=== PATIENT | female | born 1965 | race Caucasian/White ===

== ENCOUNTER 2022-05-03 07:55 | Emergency (ER) | payer BC, SELFPAY ==
--- NOTE | ~2022-05-03 | CT_ITS ---
EXAMINATION: CT brain wo con DATE: 05/03/2022 08:53 INDICATION: Confusion. Disorientation. TECHNIQUE: Computed tomography (CT) of the head was performed without intravenous contrast. The mA wa s adjusted according to patient size. Iterative reconstruction technique was employed. The dose-lengt h product was 529.67 mGy-cm. COMPARISON: None FINDINGS: There is no intracranial hemorrhage, acute infarction, or abnormal intracranial mass lesion . The ventricles are normal in size. There is mild mucosal thickening in the paranasal sinuses. The o rbits are normal. The mastoid air cells are normal. IMPRESSION: 1. Normal brain. Reviewed, dictated and finalized at location A. IMPRESSION: 1. Normal brain.
[2022-05-03 07:55] VITALS: BP 124/74; PULSE 67; RESP 14; TEMP 35.9; O2SAT 96
[2022-05-03 08:09] LABS: Glucose Point of Care 110 mg/dl (65-105)
--- NOTE | 2022-05-03 08:13 | ED.AMS ---
HPI - Altered Mental Status General Chief Complaint: Altered Mental Status Stated Complaint: AMBULANCE Time Seen by Provider: 05/03/22 08:13 Source: patient, family and RN notes reviewed Mode of arrival: EMS Limitations: altered mental status History of Present Illness HPI narrative: reports he found patient staggering around outside at 3 in the morning. She was screaming to get the people out of the back of her car. She wanted her to move his truck. She had backed into his trach with her car. thought she was sleepwalking. Then the patient went to the kitchen and started making a salad chopping up salad and then felt like she was going to fall down grabbed her and eased her down to the floor. Last known well was 2100 prior night. She has been having some slurred speech and some mild lethargy. Otherwise no other neurological symptoms have been identified. MD complaint: confusion Onset (ago): hour(s) (5) Timing confirmed by: spouse Severity: moderate Consistency of symptoms: waxing and waning Context: unknown Associated symptoms: denies other symptoms Related Data Home Medications Medication Instructions Recorded Confirmed amitriptyline 25 mg tablet 25 mg PO DAILY 05/03/22 05/03/22 ciprofloxacin HCl 500 mg tablet 500 mg PO BID 05/03/22 05/03/22 cyclobenzaprine 10 mg tablet 10 mg PO DAILY 05/03/22 05/03/22 famotidine 40 mg tablet 40 mg PO DAILY 05/03/22 05/03/22 folic acid 1 mg tablet 1 mg PO DAILY 05/03/22 05/03/22 linaclotide 290 mcg capsule 290 mcg PO DAILY 05/03/22 05/03/22 (Linzess) methotrexate sodium 2.5 mg tablet 2.5 mg PO DAILY 05/03/22 05/03/22 metoprolol succinate 100 mg 100 mg PO DAILY 05/03/22 05/03/22 tablet,extended release 24 hr pregabalin 150 mg capsule 150 mg PO DAILY 05/03/22 05/03/22 sucralfate 1 gram tablet 1 g PO DAILY 05/03/22 05/03/22 zolpidem 10 mg tablet 10 mg PO DAILY 05/03/22 05/03/22 Allergies Allergy/AdvReac Type Severity Reaction Status Date / Time adhesive tape Allergy Unknown rash Verified 05/03/22 08:17 Review of Systems Constitutional: Constitutional: Denies chills and Denies fever(s) Neurologic: Denies dizziness, Denies headache(s), Denies focal weakness, Denies seizure-like activity and Denies paresthesias [facility] Past Medical History Medical History (Updated 05/04/22 @ 00:00 by Background Daemon) GERD (gastroesophageal reflux disease) Viktoria's thyroiditis Hypertension Irritable bowel syndrome Multinodular goiter Family History Family History Other Asthma Depression Diabetes mellitus Family history of alcoholism Family history of arthritis Family history of malignant neoplasm of breast in first degree relative Social History Social History Smoking status: Never smoker Alcohol intake: current Exam Const: General: healthy appearing, no acute distress and confusion Nutritional Appearance: well nourished Orientation/consciousness: patient oriented x3 Limitations: no limitations HENMT: Head: normal to inspection Ears: external ears normal General nose exam: Normal external nose present Face and sinus: normal facial exam Mouth: Yes moist mucous membranes Eyes: Conjunctivae: conjunctivae normal Pupils: Equal, round and reactive pupils present EOM: EOMs intact bilaterally Neck: Neck: normal visual inspection Resp: Effort & Inspection: normal respiratory effort Auscultation: clear to auscultation bilaterally Cardio: Rate: regular rate Rhythm: regular rhythm GI: GI Palp: Yes Soft to palpation and No Tenderness to palpation present (GI) Auscultation: normal bowel sounds Back/Spine/Pelvis: Cervical Spine: cervical ROM normal Thoracic/Lumbar Spine: thoraco-lumbar ROM normal Skin: General skin exam: normal color Rashes: no rashes Neuro: General: oriented to person, moves all extremities and no meninge
[2022-05-03 08:16] VITALS: BP 127/70; PULSE 65; RESP 18; TEMP 36.6; O2SAT 96
[2022-05-03 08:24] VITALS: BP 127/70; PULSE 65; RESP 18; TEMP 36.6; O2SAT 96
[2022-05-03 08:36] LABS: Basophils Absolute Auto 0.02 K/mm3 (0.00-0.10); Basophils Percent Auto 0.2 % (0.0-1.0); Eosinophils Absolute Auto 0.03 K/mm3 (0.02-0.50); Eosinophils Percent Auto 0.3 % (1.0-6.0); Hematocrit 39.2 % (35.0-49.0); Hemoglobin 12.4 g/dL (12.0-15.0); Immature Granulocyte Absolute 0.03 K/mm3 (0.00-0.00); Immature Granulocyte Percent A 0.3 % (0.0-0.0); Lymphocytes Absolute Auto 2.28 K/mm3 (1.10-4.50); Mean Corpuscular HGB Conc 31.6 g/dL (32.0-36.0); Mean Corpuscular Hemoglobin 30.8 pg (27.0-31.0); Mean Corpuscular Volume 97.3 fL (78.0-102.0); Mean Platelet Volume 9.2 fl (9.2-11.8); Monocytes Absolute Auto 0.65 K/mm3 (0.10-0.90); Monocytes Percent Auto 6.8 % (2.0-11.0); Neutrophils Absolute Auto 6.5 K/mm3 (1.7-7.2); Neutrophils Percent Auto 68.4 % (50.0-70.0); Platelet Count Result 288 K/mm3 (150-420); Red Blood Count 4.03 M/mm3 (4.20-5.40); Red Cell Distribution Width 12.4 % (11.6-14.4); White Blood Count 9.5 K/mm3 (4.8-10.8)
[2022-05-03 08:54] LABS: Alanine Aminotransferase 41 U/L (14-59); Albumin Level 3.7 g/dL (3.4-5.0); Alkaline Phosphatase 91 U/L (46-116); Anion Gap 9 mmol/L (8-16); Aspartate Amino Transferase 19 U/L (15-37); Bilirubin,Total 0.3 mg/dL (0.00-1.00); Blood Urea Nitrogen 11 mg/dL (7-18); Calcium 8.9 mg/dL (8.5-10.1); Carbon Dioxide 26 mmol/L (21-32); Chloride 109 mmol/L (98-108); Estimated CRCL calculation 64 ml/min; Estimated Glomerular Filt Rate > 60; Ethanol < 3 mg/dL (0-6); Glucose 93 mg/dL (70-99); Osmolality Calculated 297 mOsm/kg (285-295); Potassium 3.7 mmol/L (3.5-5.1); Sodium 144 mmol/L (136-145); Total Protein 6.6 g/dL (6.4-8.2)
[2022-05-03 08:55] LABS: Magnesium 2.3 mg/dL (1.8-2.4)
[2022-05-03 08:58] LABS: Lactic Acid Reflex 1.2 mmol/L (0.4-2.0)
[2022-05-03 09:05] LABS: Amphetamine Screen Urine Negative (Negative); Barbiturate Screen Urine Negative (Negative); Benzodiazepines Screen Urine Negative (Negative); Cannabinoid Screen Urine Negative (Negative); Cocaine Screen Urine Negative (Negative); Methadone Screen Urine Negative (Negative); Opiate Screen Urine Negative (Negative); Phencyclidine Screen Urine Negative (Negative)
[2022-05-03 09:42] VITALS: BP 132/72; PULSE 62; RESP 16; O2SAT 100
== END 2022-05-03 09:46 | disposition home or self-care (01) ==
PROVIDERS: Emergency Provider Emergency Medicine; PCP Family Medicine
DX: R41.82 Altered mental status, unspecified (principal); Z79.899 Other long term (current) drug therapy; K21.9 Gastro-esophageal reflux disease without esophagitis; I10 Essential (primary) hypertension; E06.3 Autoimmune thyroiditis
CPT/HCPCS: 36415; 70450; 80053; 80307; 82948; 83605; 83735; 85025; 99284

== ENCOUNTER 2022-06-22 20:24 | Emergency (ER) | payer BC, SELFPAY ==
[2022-06-22] VITALS (14 sets, daily range): BP systolic 102–120; BP diastolic 63–90; PULSE 77; RESP 18; TEMP 36.6; O2SAT 92–100
--- NOTE | ~2022-06-22 | CT_ITS ---
EXAMINATION: CT brain wo con DATE: 06/22/2022 20:56 INDICATION: unresponse/FALL . TECHNIQUE: Computed tomography (CT) of the head was performed without intravenous contrast. The mA wa s adjusted according to patient size. Iterative reconstruction technique was employed. The dose-lengt h product was 605.33 mGy-cm. COMPARISON: None FINDINGS: Moderate volume subarachnoid hemorrhage at the left temporal lobe extending into the sylvian fissure and to a lesser extent along sulci of the posterior left frontal lobe. No hydrocephalus, mass, or herniation. No acute ischemic infarct. Unremarkable dural venous sinus attenuation. No acute osseous abnormality. Small scalp contusion posteriorly, near the vertex. The aerated spaces are clear. IMPRESSION: Moderate volume left subarachnoid hemorrhage. Results reported telephonically to Dr. Hopkins by Dr. Kaplan at 9:18 PM on 06/22/2022. Reviewed, dictated and finalized at location K. IMPRESSION: Moderate volume left subarachnoid hemorrhage. Results reported telephonically to Dr. Hopkins by Dr. Kaplan at 9:18 PM on 2021.
--- NOTE | ~2022-06-22 | CT_ITS ---
EXAMINATION: CT cervical spine wo con DATE: 06/22/2022 20:58 INDICATION: neck injury TECHNIQUE: Computed tomography (CT) of the cervical spine was performed without intravenous contrast. Automated exposure control and iterative reconstruction technique were employed. The dose-length pro duct was 459.77 mGy-cm. COMPARISON: None FINDINGS: Vertebral Body Alignment: Cervical spine straightening. Craniocervical and atlantoaxial alignment: Moderate degenerative change. Alignment intact. Osseous structures/fracture: No evidence of a lytic or blastic process in the visualized spine. Line ar nondisplaced right occipital bone fracture. No evidence of acute cervical spine fracture. Interbod y device at C5-6. Cervical soft tissues: The paraspinal soft tissues planes are maintained. 2.1 cm hypodensity in the r ight thyroid gland. Degenerative changes: Degenerative changes, without severe neural foraminal or central canal narrowin g. IMPRESSION: No acute fracture or traumatic malalignment in the cervical spine. Nondisplaced right occipital bone fracture. 2.1 cm right thyroid nodule, recommend outpatient thyroid ultrasound for further characteri zation. Reviewed, dictated and finalized at location K. IMPRESSION: No acute fracture or traumatic malalignment in the cervical spine. Nondisplaced right occipital bone fracture. 2.1 cm right thyroid nodule, recommend outpatie nt thyroid ultrasound for further characterization.
--- NOTE | ~2022-06-22 | CT_ITS ---
EXAMINATION: CT chest abdomen pelvis wo con DATE: 06/22/2022 20:57 INDICATION: fall with injuries . TECHNIQUE: Computed tomography (CT) of the chest, abdomen, and pelvis was performed with 100 mL Omnip aque-350 intravenous contrast. Automated exposure control and iterative reconstruction technique were employed. The dose-length product was 1212.29 mGy-cm. COMPARISON: None FINDINGS: CHEST: No thoracic aortic injury. No mediastinal hematoma. No pericardial effusion. No acute lung injury. No pleural effusion or pneumothorax. ABDOMEN/PELVIS: No solid organ injury. No evidence of bowel or mesenteric injury. No free fluid or free air. No retroperitoneal hematoma. Pelvic contents are atraumatic. MUSCULOSKELETAL: No acute fracture. Moderate anterior wedge deformity at T6. Otherwise no fracture or traumatic malalignment of the thora cic or lumbar spine. IMPRESSION: Limited noncontrast examination. Moderate anterior wedge deformity at T6 of uncertain age. Otherwise no acute process detected in the chest, abdomen, or pelvis. Reviewed, dictated and finalized at location K. IMPRESSION: Limited noncontrast examination. Moderate anterior wedge deformity at T6 of unc ertain age. Otherwise no acute process detected in the chest, abdomen, or pelvi s.
--- NOTE | 2022-06-22 20:46 | ECG_ITS ---
Measurements Intervals [place] Rate: 79 P: 55 AL: 244 QRS: 4 QRSD: 110 T: 53 QT: 414 QTc: 476 Interpretive Statements SINUS RHYTHM WITH FIRST DEGREE AV BLOCK POSSIBLE LEFT ATRIAL ENLARGEMENT [-0.1mV P-WAVE IN V1/V2] NONSPECIFIC T-WAVE ABNORMALITY BORDERLINE ECG NO PREVIOUS ECG AVAILABLE FOR COMPARISON Electronically Signed On 06-24-2022 14:34:09 CDT by Pedro Diaz M.D.
--- NOTE | 2022-06-22 21:05 | PC.NURSE ---
pt moved to er 1 to be closer to desk
[2022-06-22 21:49] LABS: Basophils Absolute Auto 0.02 K/mm3 (0.00-0.10); Basophils Percent Auto 0.3 % (0.0-1.0); Eosinophils Absolute Auto 0.03 K/mm3 (0.02-0.50); Eosinophils Percent Auto 0.4 % (1.0-6.0); Hematocrit 34.8 % (35.0-49.0); Hemoglobin 11.1 g/dL (12.0-15.0); Immature Granulocyte Absolute 0.02 K/mm3 (0.00-0.00); Immature Granulocyte Percent A 0.3 % (0.0-0.0); Lymphocytes Absolute Auto 1.21 K/mm3 (1.10-4.50); Lymphocytes Percent Auto 16.6 % (18.0-42.0); Mean Corpuscular HGB Conc 31.9 g/dL (32.0-36.0); Mean Corpuscular Hemoglobin 29.8 pg (27.0-31.0); Mean Corpuscular Volume 93.5 fL (78.0-102.0); Mean Platelet Volume 9.1 fl (9.2-11.8); Monocytes Absolute Auto 0.44 K/mm3 (0.10-0.90); Neutrophils Absolute Auto 5.6 K/mm3 (1.7-7.2); Neutrophils Percent Auto 76.4 % (50.0-70.0); Platelet Count Result 273 K/mm3 (150-420); Red Blood Count 3.72 M/mm3 (4.20-5.40); Red Cell Distribution Width 13.3 % (11.6-14.4); White Blood Count 7.3 K/mm3 (4.8-10.8)
[2022-06-22 22:01] LABS: Alanine Aminotransferase 66 U/L (14-59); Albumin Level 3.7 g/dL (3.4-5.0); Alkaline Phosphatase 93 U/L (46-116); Anion Gap 12 mmol/L (8-16); Aspartate Amino Transferase 62 U/L (15-37); Bilirubin,Total 0.2 mg/dL (0.00-1.00); Blood Urea Nitrogen 18 mg/dL (7-18); Calcium 8.1 mg/dL (8.5-10.1); Carbon Dioxide 25 mmol/L (21-32); Chloride 106 mmol/L (98-108); Estimated Glomerular Filt Rate > 60; Glucose 121 mg/dL (70-99); INR 1.1; Osmolality Calculated 298 mOsm/kg (285-295); Partial Thromboplastin Time 28.2 SEC (23.90-30.70); Potassium 3.1 mmol/L (3.5-5.1); Prothrombin Time 11.7 Seconds (9.50-12.10); Sodium 143 mmol/L (136-145); Total Protein 6.7 g/dL (6.4-8.2)
[2022-06-22 22:02] LABS: Ethanol 210 mg/dL (0-6)
[2022-06-22 22:03] LABS: CRP 0.6 mg/dL (0.0-0.9)
[2022-06-22 22:06] LABS: Lactic Acid Reflex 2.3 mmol/L (0.4-2.0)
--- NOTE | 2022-06-22 22:14 | ED.HEATRA ---
HPI - Head Injury General Chief complaint: Trauma Stated complaint: amb Time Seen by Provider: 06/22/22 20:27 Source: patient, family and EMS Mode of arrival: EMS Limitations: altered mental status History of Present Illness HPI Narrative: This is a 57-year-old female that presents via EMS after she had a fall while she was at home, the patient was with family and friends and was drinking alcohol and said she was going to bed and subsequently was found at the bottom of stairs and was found unconscious and brought in by EMS. Vital signs were stable blood pressure 120/90 respiratory rate of 18 O2 sats of 90%. There was some she denies having any headache no nausea or vomiting no abdominal pain no chest pain. Patient does recognize her and states her name. The patient is alert not oriented. With no shortness of breath no chest pain. MD Complaint: head injury Onset (ago): hour(s) Arrival Conditions: C-spine immobilization present Mechanism of Injury: fall Place: home Loss of Consciousness: yes Location of injury: occipital Severity: severe Related Data Home Medications Medication Instructions Recorded Confirmed ciprofloxacin HCl 500 mg tablet 500 mg PO BID 05/03/22 05/24/22 cyclobenzaprine 10 mg tablet 10 mg PO DAILY 05/03/22 05/24/22 famotidine 40 mg tablet 40 mg PO DAILY 05/03/22 05/24/22 folic acid 1 mg tablet 1 mg PO DAILY 05/03/22 05/24/22 linaclotide 290 mcg capsule 290 mcg PO DAILY 05/03/22 05/24/22 (Linzess) methotrexate sodium 2.5 mg tablet 2.5 mg PO DAILY 05/03/22 05/24/22 metoprolol succinate 100 mg 100 mg PO DAILY 05/03/22 05/24/22 tablet,extended release 24 hr pregabalin 150 mg capsule 150 mg PO DAILY 05/03/22 05/24/22 sucralfate 1 gram tablet 1 g PO DAILY 05/03/22 05/24/22 Allergies Allergy/AdvReac Type Severity Reaction Status Date / Time adhesive tape Allergy Unknown rash Verified 06/22/22 20:49 Review of Systems Review of Systems: All systems reviewed & are unremarkable except as noted in HPI and below PMFSH Past Medical History Medical History GERD (gastroesophageal reflux disease) Viktoria's thyroiditis Hypertension Irritable bowel syndrome Multinodular goiter Family History Family History Other Asthma Depression Diabetes mellitus Family history of alcoholism Family history of arthritis Family history of malignant neoplasm of breast in first degree relative Social History Social History Smoking status: Never smoker Alcohol intake: current Exam Const: General: ill appearing Limitations: no limitations HENMT: Head: normal to inspection General nose exam: Normal external nose present Face and sinus: normal facial exam Mouth: Yes Normal oral and palatal mucosa present Eyes: Conjunctivae: conjunctivae normal EOM: EOMs intact bilaterally Direct Ophthalmoscopy: no photophobia Neck: Neck: normal visual inspection, no lymphadenopathy and no meningeal signs Chest: Chest palpation & inspection: normal inspection of the chest Resp: Effort & Inspection: normal respiratory effort Auscultation: clear to auscultation bilaterally Cardio: Rate: regular rate Skin: General skin exam: normal color Rashes: no rashes Neuro: General: patient oriented x3 Speech: normal speech Extrem: General: normal to inspection Psych: Mental Status: mental status grossly normal Affect: normal affect Course Course Emergency Course: Patient had CT scan that was reviewed and showed moderate size subarachnoid hemorrhage with a linear occipital nondisplaced linear fracture of the skull with no cervical spine fracture CT abdomen pelvis and chest showed no acute enter abdominal hemorrhage labs and plan reviewed with . The patient is protecting her airway she is alert disoriented but protecting her airway wi
--- NOTE | 2022-06-22 22:18 | PC.NURSE ---
[facility] declined transfer
== END 2022-06-22 22:41 | disposition short-term general hospital (02) ==
PROVIDERS: Emergency Provider Emergency Medicine; PCP Family Medicine
DX: S06.6X1A Traumatic subarachnoid hemorrhage with loss of consciousness of 30 minutes or less, initial encounter (principal); W19.XXXA Unspecified fall, initial encounter
CPT/HCPCS: 36415; 70450; 71250; 72125; 74176; 80053; 80307; 83605; 85025; 85610; 85730; 86140; 93005; 99291

== ENCOUNTER 2025-01-05 06:14 | Emergency (ER) | payer OTHER, SELFPAY ==
--- NOTE | ~2025-01-05 | CT_ITS ---
Non-contrast CT scan of the Abdomen and Pelvis Clinical indication: Kidney stone Technique: 2.5 mm axial scans were obtained through the abdomen and pelvis without intravenous or or al contrast. Dose reduction technique was used on this scan by utilizing automated exposure control a nd iterative reconstruction technique. The dose-length product (DLP) was 266.42 mGy-cm. COMPARISON: 06/22/2022 Findings: Images through the lung bases reveal no abnormalities. There is no evidence of renal or ureteral calculi. The kidneys and the ureters are nondilated. There is diffuse fatty infiltration of the liver. Cholecystectomy clips are present. The spleen, panc reas, and adrenals appear normal. There is no aortic aneurysm. There is no evidence of bowel obstruction. Images through the pelvis were performed. There is no evidence of ascites or lymphadenopathy. Urinary bladder unremarkable. No pelvic mass seen. Impression: No acute abnormality. Diffuse fatty infiltration of liver. Reviewed, dictated and finalized at [facility]. Impression: No acute abnormality. Diffuse fatty infiltration of liver.
[2025-01-05 06:16] VITALS: BP 144/93; PULSE 110; RESP 18; TEMP 36.1; O2SAT 100
--- OUTSIDE RECORDS SUMMARY | 2025-01-05 06:16 | XMS_ITS ---
Author Organization [facility] Address [address] [place] [address] Care Team Providers Care Armament Repairer Name Role Phone Shiv Adam MD Unavailable [phone] Arnold Zhang MD Unavailable [phone] Elva Langford MD Unavailable [phone] Richard Sims MD Unavailable [phone] Kayode Cerda NP Primary Care Provider [phone] Active Problems Problem Noted Date Diagnosed Date Myelopathy 09/02/2024 Elevated sedimentation rate 05/21/2024 Assessment & Plan (05/21/2024 4:51 PM CDT): Negative temporal artery biopsy right side. Reports mild intermittent pains still occurring around right eye. Today reports she thinks it may be related to to eye movement. The color vision, BCVA, and EOMs were all reassuring on exam (not pointing to optic neuritis). Stressed f/u with neurology and placed additional referral to rheumatology. Elevated C-reactive protein 05/21/2024 Assessment & Plan (05/21/2024 4:46 PM CDT): Negative temporal artery biopsy right side. Reports mild intermittent pains still occurring around right eye. Today reports she thinks it may be related to to eye movement. The color vision, BCVA, and EOMs were all reassuring on exam (not pointing to optic neuritis). Stressed f/u with neurology and placed additional referral to rheumatology. Dry eye syndrome of both eyes 05/21/2024 Assessment & Plan (05/21/2024 4:50 PM CDT): Trial refresh tears BID-QID History of colon cancer 05/03/2024 Pain around right eye 04/30/2024 Assessment & Plan (05/21/2024 4:49 PM CDT): Still endorsing intermittent dull pain right eye (OD) lasting seconds. ESR and CRP elevated, but negative TAB right side. Had referral to rheumatology by PCP, placed another referral. Non-specific pain in past, but now thinks it may be associated with eye movement. Reassuringly, there is no EOM restrictions, and color and BCVA are excellent (which is reassuring regarding any suspicion for optic neuritis). Advised pt to continue with neurology as scheduled and to schedule with rheumatology. Offered f/u with pain management eyecare specialist and patient refused at this time. Recommended RTC STAT/ED with any pain on eye movement or vision loss, expressed understanding. Mild punctate epithelial erosions (PEE) on exam, recommended trialing Refresh tears every day (QD)-QID to see if this helps with intermittent pains. Assessment & Plan (05/10/2024 3:27 PM CDT): Consistent symptoms with intermittent pain around right mandaeism, but now with mild left sided pain as well. Her new specs are to arrive today, which may diminish symptoms if related to asthenopia. Other etiologies could include migrainous etiology. Reassuringly, there is no disc edema and there are no concerning retinal vascular changes. Since last exam, patient has had labs w elevated CRP (longstanding) and mildly elevated CRP. Have discussed this with neuro-oph, and pt will continue as planned for temporal artery biopsy on RIGHT SIDE to help rule out GCA. Educated on condition and risks associated with permanent vision loss. Pt was scheduled for TAB tomorrow, but educated to go to ED with any new symptoms or vision loss, expressed understanding. Will call to schedule following results of TAB. Assessment & Plan (04/30/2024 5:21 PM CDT): Unclear of etiology on exam, with benign exam findings. No inflammation or evidence of infection, stable appearance of optic disc. Froilan's equal. Due to pain around mandaeism, will order ESR/CRP out of abundance of caution. Will add TSH to T4 as well. Pt denies jaw claudication. Pt is currently updating specs and awaiting new specs. Educated pain may be related to asthenopia. Educated on typical causes of unilateral eyelid twitch including stress, excessive caffeine, poor water intake, or not enough sleep. She noted pain along lower lid/cheek on right side in V2 distribution, but no vesicles on exam. Will place referral for neurology. Educated to call/RTC STAT with any new signs or symptoms. Expressed understanding. 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 Monitor Assessment & Plan (09/26/2022 1:43 PM COUNTER MOLDER): Photos obtained, flat with overlying drusen SN. Will closely monitor. Glaucoma suspect of both eyes 09/26/2022 Assessment & Plan (05/21/2024 4:50 PM CDT): Stable intraocular pressure (IOP) low teens, monitor Assessment & Plan (05/10/2024 3:27 PM CDT): Stable OCT and Gatica visual field (HVF), monitor Assessment & Plan (04/30/2024 5:22 PM CDT): Pt's intraocular pressure (IOP) excellent today low-mid teens, monitor Assessment & Plan (09/26/2022 1:46 PM COUNTER MOLDER): Patient's intraocular pressure (IOP) in mid teens both eyes (OU). Gonio open Grade IV both eyes (OU). Thinner than average Pachs. No RNFL thinning on OCT. No Gatica visual field (HVF) defects consistent with glaucoma or neurologic conditions (with history of TBI). Will continue to closely follow with neurology/neurosurgery for TBI. Educated on findings. Will continue to closely monitor for time being without intraocular pressure (IOP) lowering meds. Macular scar of left eye 09/26/2022 Assessment & Plan (09/26/2022 2:40 PM COUNTER MOLDER): Small focal scars left eye (OS). No evidence of heme or elevation. Monitor. Muscle cramp 07/26/2022 Small fiber neuropathy 07/17/2022 Seizures 07/17/2022 Seronegative rheumatoid arthritis 02/06/2022 Compression fracture of thoracic vertebra 2021 Degeneration of cervical intervertebral disc Menopausal syndrome 01/08/2022 Night sweats 01/08/2022 Pneumatouria 01/08/2022 Mass of chest wall 06/14/2020 Tachycardia 06/13/2020 PVCs (premature ventricular contractions) 2018 Thyroid nodule 12/29/2017 Abnormal electrocardiography 03/09/2015 Intermittent palpitations 03/09/2015 Primary hypertension 03/09/2015 Current Treatment and Therapy Plans No current plan information found. Past Treatment and Therapy Plans No past plan information found. Lifetime Dose Tracking * Chemical Lifetime Dose Automatic Entry Manual Entr y Fluoro Time 0.765 minutes 0.765 minutes 0 minutes Air kerma at the reference point (Ka,r) 21.24 mGy 2 1.24 mGy 0 mGy DLP 6,596 mGycm 6,596 mGycm 0 mGycm Resolved Problems Problem Noted Date Diagnosed Date Resolved Date Giant cell aortitis 05/10/2024 08/30/20 24 Urine frequency 03/22/2024 08/30/2024 Spondylolisthesis, lumbar region 03/17/2024 08/30/2024 GERD (gastroesophageal reflux disease) 03/17/2024 08/30/2024 Spondylolisthesis at L4-L5 level 02/22/2024 08/30/2024 Lumbar facet arthropathy 01/31/202305/2024 Lumbar pain 01/31/2023 08/30/2024 Diffuse traumatic brain inju ry with loss of consciousness greater than 24 hours without return to pre-existing conscious level with patient surviving 10/25/2022 08/30/2024 BPPV (benign paroxysmal posi tional vertigo), bilateral 10/25/2022 08/30/2024 Herpes zoster 01/08/2022 08/30/2024 Lumbar radiculopathy 01/08/2022 024 Neck pain 01/08/2022 08/30/2024 Displacement of lumbar inter vertebral disc without myelopathy 01/08/2022 08/30/2024 Cerebrovascular accident (CVA) 12/23/2018 08/30/2024 Neuropathy 01/21/2018 08/30/2024 Carpal tunnel syndrome 03/09/201508/30
--- OUTSIDE RECORDS SUMMARY | 2025-01-05 06:16 | XMS_ITS | Encounter Summary ---
Author Organization [facility] Address [address] [place] [address] Phone Care Team Providers Care Wood Science Professor Name Role Phone Shiv Adam MD Unavailable [phone] Arnold Zhang MD Unavailable Elva Langford MD Unavailable [phone] Richard Sims MD Unavailable [phone] Kayode Cerda NP Primary Care Provider [phone] Encounter Details Date Type Department Care Team (Late st Contact Info) Description 11/15/2024 Results Follow-Up [facility] ENT [address] [facility] Medical Office Building [address] [address] Ashleigh Clark MD [facility] [address] [address] Social History Tobacco Use Types Packs/Day Years Used Date Smoking Tobacco: Never Passive Smoke Exposure: Never Smokeless Tobacco: Never Alcohol Use Standard Drinks/Week Comments Yes 0 (1 standard drink = 0.6 oz pur e alcohol) social AHC Utilities Answer Date Recorded In the past 12 months has [employer] electric, gas, oil, or water company threatened to shut off services in your home? No 03/22/2024 Social Connection and Isolation Panel [NHANES] A nswer Date Recorded In a typical week, how many times do you talk on the phone with family, friends, or neighbors? Once a week 06/09/20 How often do you get togethe r with friends or relatives? Once a week 06/09/2024 How often do you attend chur ch or druze services? 1 to 4 times per year 06/09/2024 Do you belong to any clubs o r organizations such as quaker groups, unions, fraternal or athletic groups, or school groups? Yes 06/09/2024 How often do you attend meet ings of the clubs or organizations you belong to? 1 to 4 times per year 06/09/2024 Are you , , di vorced, , never , or living with a partner? Patient declined 06/09/2024 AUDIT-C Answer Date Recorded Q1: How often do you have a drink containing alcohol? Never 06/14/2024 Q2: How many drinks containi ng alcohol do you have on a typical day when you are drinking? Patient does not drink Q3: How often do you have si x or more drinks on one occasion? Never 06/14/2024 Overall Financial Resource Strain (CARDIA) Answe r Date Recorded How hard is it for you to pa y for the very basics like food, housing, medical care, and heating? Not hard at all 06/09/2024 PHQ-2 Answer Date Recorded Patient Health Questionnaire-2 Score 2 06/09/2024 [facility] - Occupational Stress Questionnaire Answer Date Recorded Do you feel stress - tense, restless, nervous, or anxious, or unable to sleep at night because your mind is troubled all the time - these days? Only a little 06/09/2024 Exercise Vital Sign Answer Date Recorde d On average, how many days pe r week do you engage in moderate to strenuous exercise (like a brisk walk)? 1 day 06/09/2024 On average, how many minutes do you engage in exercise at this level? 30 min 06/09/2024 Hunger Vital Sign Answer Date Recorded Within the past 12 months, y ou worried that your food would run out before you got the money to buy more. Never true 06/09/20 24 Within the past 12 months, t he food you bought just didn't last and you didn't have money to get more. Never true 06/09/2024 PRAPARE - Transportation Answer Date Re corded In the past 12 months, has l ack of transportation kept you from medical appointments or from getting medications? No 05/23 In the past 12 months, has l ack of transportation kept you from meetings, work, or from getting things needed for daily living? No 06/09/2024 Housing Stability Vital Sign Answer Paul e Recorded In the last 12 months, was t here a time when you were not able to pay the mortgage or rent on time? No 06/09/2024 In the past 12 months, how m any times have you moved where you were living? 0 06/09/2024 At any time in the past 12 m [facility], were you homeless or living in a fci (including now)? No 06/09/2024 Personal Safety Answer Date Recorded Have you ever been in or are you currently in a harmful physical or emotional relationship or is someone making you feel afraid or unsafe? 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 Author CCM Chronic Pain Care Plan Chronic Care Management No Afsaneh Che RN Note: Problem: Chronic Pain Goals: 1. Minimize further functional decline 2. Maximize quality of life 3. Control pain Strategies: - Activity/exercise program recommendation - Conservative stepwise pain medicine strategy with multi-disciplinary approach - Recommend healthy lifestyle strategies and compensatory methods as needed documented as of this encounter Visit Diagnoses Not on filedocumented in this encounter Care Teams Wood Science Professor Relationship Specialty Start Date End Date Kayode Cerda NP [address] [place] [address] [place] [address] PCP - General Family Medicine 04/30/24 Shiv Adam MD Consulting Physician Cardiology 06/09/19 Arnold Zhang MD [address] [place] [address] Consulting Physician Neurosurgery 06/29/22 Elva Langford MD [address] [facility] [address] [place] [address] Consulting Physician Gastroenterology 05/21/23 Richard Sims MD [address] [facility] [id number] [place] [address] Surgeon Colon and Rectal Surgery 06/10/23 documented as of this encounter
--- OUTSIDE RECORDS SUMMARY | 2025-01-05 06:16 | XMS_ITS | Encounter Summary ---
Author Organization [facility] Address [address] [place] [address] Care Team Providers Care Cancer Genetics Assistant Name Role Phone Audrey Hollis MD Primary Care Provider [phone] Encounter Details Date Type Department Care Team (Late Contact Info) Description 06/16/2020 Abstract [facility], [facility] [address] [place], [place] [id number] Radha Burns MA Social History Tobacco Use Types Packs/Day Years Used Date Smoking Tobacco: Never Smokeless Tobacco: Never Alcohol Use Standard Drinks/Week Comments Yes 0 (1 standard drink = 0.6 oz pur e alcohol) Comments Unknown Sex and Gender Information Value Date Recorded Sex Assigned at Female 11/26/2024 11:33 AM TONGUER Legal Sex Female 7:39 PM CDT Gender Identity Not on file Sexual Orientation Not on file COVID-19 Exposure Response Date Recorded In the last month, have you been in contact with someone who was confirmed or suspected to have Coronavirus / COVID-19? No / Unsure 06/16/2020 9:59 AM CDT documented as of this encounter Plan of Treatment Upcoming Encounters Date Type Department Care Team (Late Contact Info) Description 11/25/2025 12:45 PM TONGUER Office Visit [facility], [facility] [address] [place], [place] [id number] Ander Arnold MD [facility]. [facility] [address] [place], [place] [id number] documented as of this encounter Procedures Procedure Name Priority Date/Time Associated Diagnosis Comments PROTIME (OUTSIDE LAB) Routine 05/27/2019 CBC (OUTSIDE LAB) Routine 05/27/2019 BASIC METABOLIC PANEL Routine 05/27/2019 COMPREHENSIVE METABOLIC PANEL Routine 04/30/2019 HEMOGLOBIN, GLYCOSYLATED Routine 04/30/2019 documented in this encounter Results * CBC (OUTSIDE LAB) (05/27/2019) WBC 6.2 HGB 12.4 HCT 37.8 PLT 320 05/27/2019 us [facility] Abstract LAB-OUTSIDE/ABSTRACTED Final Result * PROTIME (OUTSIDE LAB) (05/27/2019) PROTIME 11.1 INR 1.1 05/27/2019 us Doc [facility] Abstract LAB-OUTSIDE/ABSTRACTED Final Result * BASIC METABOLIC PANEL (05/27/2019) SODIUM S/P/B 140 POTASSIUM S/P/B 4.2 CO2 31 CHLORIDE S/P/B 102 GLUCOSE 91 mg/dL CALCIUM S/P/B 9.8 BUN 13 CREATININE S/P/B 0.84 0.5 - 1.0 EGFR NON-AFR. AMER. >60 <=90 05/27/2019 us Doc [facility] Abstract LABORATORY Final Result * COMPREHENSIVE METABOLIC PANEL (04/30/2019) SODIUM S/P/B 143 POTASSIUM S/P/B 4.2 CO2 24 CHLORIDE S/P/B 107 GLUCOSE 85 mg/dL CALCIUM S/P/B 9.8 BUN 15 CREATININE S/P/B 0.73 0.5 - 1.0 EGFR NON-AFR. AMER. >60 <=90 ALKALINE PHOSPHATASE S/P/B 98 ALT 34 AST 34 BILIRUBIN TOTAL S/P/B 0.50 ALBUMIN S/P/B 4.4 3.5 - 5.0 TOTAL PROTEIN S/P/B 7.2 GLOBULIN 2.8 04/30/2019 us Doc [facility] Abstract LABORATORY Final Result * HEMOGLOBIN, GLYCOSYLATED (04/30/2019) HGB A1C 5.8 % 04/30/2019 us Doc [facility] Abstract LABORATORY Final Result documented in this encounter Visit Diagnoses Not on filedocumented in this encounter Additional Health Concerns Infection Onset Date Last Indicated Resolved Time COVID-19 Rule Out 08/07/2020 08/07/2020 08/08/2020 11:05 AM TONGUER documented as of this encounter Care Teams Cancer Genetics Assistant Relationship Specialty Start Date End Date Audrey Hollis MD [address] [place] [address] PCP - General FAMILY PRACTICE 06/05/20 documented as of this encounter
--- OUTSIDE RECORDS SUMMARY | 2025-01-05 06:16 | XMS_ITS | Patient Health Record ---
Author Organization [facility] Address [address] [place] [address] Care Team Providers Care Cooker Helper Name Role Phone Eliceo Hicks Unavailable [phone] REASON FOR REFERRAL No Information MEDICATIONS Medication SIG (Take, Route, Frequency, Duration) Notes Start Date End Date Status LORazepam 2 MG/ML 1 ml as needed Orall y Twice a day Active Ambien 10 MG 1 tablet at bedtime as needed Orally Once a day Active Cyclobenzaprine HCl 10 MG Oral for 90 Active SOCIAL HISTORY Tobacco Use: Social History Observation Description Date Details (start date - stop date) Never Smoker NA - NA Sex Assigned At : Social History Observation Description Sex Assigned At Unknown Tobacco Use/Smoking Question Answer Notes Are you a nonsmoker PROBLEMS Problem Type ICD Code Onset Dates Problem Status W/U Status Risk SNOMED Code Notes Problem Radiculopathy , lumbar region (M54.16) Active confirmed 284757763 Problem L4-L5 disc bulge (M51.26) Active confirmed 377451130 PLAN OF TREATMENT No Information MEDICATIONS ADMINISTERED Medication Instructions Date of Administration Dosage Notes Bilateral L4/5 SESI 06/05/2020 MEDICAL (GENERAL) HISTORY Medical History History ICD Code thyroid disease kidney stones bladder infections constipation Surgical History Surgery Date(Month/Year) hysterectomy cholecystectomy Disc
--- OUTSIDE RECORDS SUMMARY | 2025-01-05 06:16 | XMS_ITS | Encounter Summary ---
Author Organization [facility] Address [address] [place] [address] Care Team Providers Care Geophysical Support Specialist Name Role Phone Audrey Hollis MD Primary Care Provider [phone] Encounter Details Date Type Department Care Team (Late Contact Info) Description 04/12/2021 Misc Documentation [facility] eld [address] [place] [id number] Abstract, Doc [facility] Social History Tobacco Use Types Packs/Day Years Used Date Smoking Tobacco: Never Smokeless Tobacco: Never Alcohol Use Standard Drinks/Week Comments Yes 0 (1 standard drink = 0.6 oz pur e alcohol) Comments No Sex and Gender Information Value Date Recorded Sex Assigned at Female 11/26/2024 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 No / Unsure 04/11/2021 9:00 AM CDT documented as of this encounter Plan of Treatment Upcoming Encounters Date Type Department Care Team (Late Contact Info) Description 11/25/2025 12:45 PM OPERATOR AND TRUCK DRIVER Office Visit [facility] [facility] [facility], [facility] [address] [place], [place] [phone] Ander Arnold MD [facility]. [facility] [address] [place], [place] [phone] documented as of this encounter Visit Diagnoses Not on filedocumented in this encounter Care Teams Geophysical Support Specialist Relationship Specialty Start Date End Date Audrey Hollis MD [address] [place] [address] [place] [address] PCP - General FAMILY PRACTICE 06/05/20 documented as of this encounter
--- OUTSIDE RECORDS SUMMARY | 2025-01-05 06:16 | XMS_ITS | Clinical Summary ---
Author Organization [facility] Address [address] [place] [address] Care Team Providers Care Warehouse Guard Name Role Phone Shiv Adam MD Unavailable Arnold Zhang MD Unavailable Elva Langford MD Unavailable [phone] Richard Sims MD Unavailable [phone] Kayode Cerda NP Primary Care Provider [phone] Allergies Active Allergy Reactions Criticality Noted Date Comments Adalimumab Swelling Medium 04/01/2022 Injection site swelling Adhesive Rash High 10/14/2019 Tissue Adhesive Blisters High 07/09/2023 Patient states it is a sever allergy Medications cyclobenzaprine (FLEXERIL) 10 mg tabletIndicatio ns:Muscle Spasm Take 1 tablet (10 mg total) by mouth nightly as needed for muscle spasms Active amitriptyline (ELAVIL) 50 mg tablet Take 1 tablet (50 mg total) by mouth nightly 2 Active pregabalin (LYRICA) 150 mg capsule Take 1 capsule (150 mg total) by mouth 2 (two) times a day 2 Active Linzess 290 mcg capsule Take 1 capsule (290 mcg total) by mouth station air traffic control specialist before breakfast 2 Active metoprolol XL (TOPROL-XL) 100 mg 24 hr tablet Take 1 tablet (100 mg total) by mouth 2 (two) times a day 3 Active polyethylene glycol (Miralax) 17 gram/dose bulk powder Take 17 g by mouth every morning Active semaglutide (OZEMPIC) 0.25 mg or 0.5 mg(2 mg/1.5 mL) pen injector injection Inject 0.5 mg under the skin once a week Friday' Active ergocalciferol (VITAMIN D) 50,000 unit capsuleIndicati ons:Vitamin D deficiency Take 1 capsule (50,000 Units total) by mouth once a week TAKE 1 CAPSULE ONCE A WEEK FOR 12 WEEKS, THEN FOLLOW UP WITH YOUR PCP. 12 capsule 4 Active levETIRAcetam (KEPPRA) 750 mg tablet Take 2 tablets (1,500 mg total) by mouth 2 (two) times a day 120 tablet 11 4 07/29/20 25 Active Additional Information Patient not taking.Reported on 09/02/2024 famotidine (PEPCID) 40 mg tablet Take 1 tablet (40 mg total) by mouth daily 4 Active Active Problems Problem Noted Date Diagnosed Date [...] Consistent symptoms with intermittent pain around right zoroastrianism, but now with mild left sided pain [...] disc. Froilan's equal. Due to pain around zoroastrianism, will order ESR/CRP out of abundance of [...] Monitor Assessment & Plan (09/26/2022 1:43 PM SCOURING TRAIN OPERATOR): Photos obtained, flat with overlying drusen SN. [...] monitor Assessment & Plan (09/26/2022 1:46 PM SCOURING TRAIN OPERATOR): Patient's intraocular pressure (IOP) in mid teens [...] 09/26/2022 Assessment & Plan (09/26/2022 2:40 PM SCOURING TRAIN OPERATOR): Small focal scars left eye (OS). No [...] 03/09/2015 Intermittent palpitations 03/09/2015 Primary hypertension 03/09/2015 Resolved Problems Problem Noted Date Diagnosed Date [...] Neuropathy 01/21/2018 08/30/2024 Carpal tunnel syndrome 03/09/201508/30 Encounters Date Type Department Care Team Description 12/06/2024 Telephone [facility] General Neurology [address] [facility] 6th [place] [address] [place] [address] Belgica Gregory, RN 12/01/2024 Telephone [facility] General Neurology [address] [facility] 6th [place] [address] [place] [address] Belgica Gregory, RN 11/15/2024 Results Follow-Up [address] [place] [phone] Ashleigh Clark MD 11/12/2024 10:07 AM SCOURING TRAIN OPERATOR - 11/12/2024 11:59 PM SCOURING TRAIN OPERATOR Hospital Encounter [facility] [address] [place] [address] Right thyroid nodule Discharge Disposition: Discharge to home or self care 11/08/2024 Telephone [facility] Radiology [address] [facility] [place] [address] Akosua Novoa RN 11/05/2024 Orders Only [facility] ([facility]) - [facility] ENT [address] [facility] 11th [place] [address] [place] [address] Ashleigh Clark MD Right thyroid nodule (Primary Dx); Thyroid nodule 11/05/2024 Telephone [facility] ([facility]) [facility] ENT [address] [facility] 11th [place] [address] [place] [address] Makenna Cuellar CMA 11/01/2024 1:20 PM SCOURING TRAIN OPERATOR Telemedicine [facility] ENT [address] [place] [address] [address] [place] [phone] Ashleigh Clark MD Sicca syndrome (Primary Dx); Right thyroid nodule; Neck pain on right side 10/29/2024 3:57 PM SCOURING TRAIN OPERATOR - 10/29/2024 11:59 PM SCOURING TRAIN OPERATOR Hospital Encounter [facility] Radiology [address] [place] [address] Pain in toe of right foot Discharge Disposition: Discharge to home or self care 10/29/2024 12:25 PM SCOURING TRAIN OPERATOR - 10/29/2024 11:59 PM SCOURING TRAIN OPERATOR Hospital Encounter [facility] [address] [place] [address] Homero Kincaid Rosemary S. 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, intractable, without status epilepticus (HCC) Discharge Disposition: Discharge to home or self care 10/26/2024 Telephone [facility] ([facility]) - [facility] ENT [address] [facility] [address]th [place] [address] [place] [address] Makenna Cuellar CMA 10/26/2024 Orders Only [facility] ([facility]) - [facility] ENT [address] [facility] [address] [place] [address] [place] [phone] Ashleigh Clark MD Enlarged thyroid (Primary Dx) 10/16/2024 8:30 AM SCOURING TRAIN OPERATOR - 10/16/2024 11:59 PM SCOURING TRAIN OPERATOR Hospital Encounter [facility] MRI [address] [place] [address] Sicca syndrome Discharge Disposition: Discharge to home or self care 10/08/2024 1:27 PM SCOURING TRAIN OPERATOR - 10/08/2024 11:59 PM SCOURING TRAIN OPERATOR Hospital Encounter [facility] [address] [place] [address] Other iron deficiency anemia Discharge Disposition: Discharge to home or self care 10/08/2024 11:15 AM SCOURING TRAIN OPERATOR Lab [facility] Outpatient Lab at [address] [phone] Night sweats (Primary Dx) 10/08/2024 Telephone [facility] ([facility]) - [facility] ENT [address] [facility] 11th [place] [address] [place] [phone] Makenna Cuellar CMA from Last 3 Months Immunizations Immunization Administration Dates Next Due Influenza, Quadrivalent, Spl it, Preservative Free, Intramuscular 07/11/2023,07/30/2022 Surgical History Surgery Date Site/Laterality Comments MS UNLISTED PROCEDURE COLON Colon Surgery - (Added by TW Conv) MS CHOLECSTOT/CHOLECSTOST W/EXPL DRG/RMVL ST1 SPX Cholecystotomy - (Added by TW Conv) MS APPENDECTOMY Appendectomy - (Added by TW Conv) MS TOTAL ABDOMINAL HYSTERECT W/WO RMVL TUBE OVARY Hysterectomy - (Added by TW Conv) CERVICAL SPINE SURGERY C5-6 arthroplasty TUBAL LIGATION RIGHT COLECTOMY 07/09/2023 Laparoscopic right colectomy (colon cancer) HYSTERECTOMY 09/22/2000 - 09/21/2001 Partial--ovaries intact COLONOSCOPY CHOLECYSTECTOMY Medical History Medical History Date Comments Disorder of thyroid Thyroid trou ble - (Added by TW Conv) Small fiber neuropathy PVC's (premature ventricular contractions) Constipation History of kidney stones Thyroid nodule TIA (transient ischemic attack) Hypertension Seasonal allergies Abnormal heart rhythm Muscle pain Head injury Weakness GERD (gastroesophageal reflux disease) Seizures (HCC) Colon cancer (HCC) 2022 Colon resecti on Dizziness 4wks Abnormal ECG Family History Medical History Relation Name Comments Heart attack Father Vitaly Family history of myocardial infarction - (Added by TW Conv) Heart disease Father Vitaly Hypertension Father Vitaly Colon cancer Maternal Grandmother Arthritis Mother Kecia Family history of arthritis - (Added by TW Conv) Breast cancer Mother Kecia Cause of at age 76 Crohn's disease Mother Kecia Family histo ry of Crohn's disease - (Added by TW Conv) Hypertension Mother Kecia Lung cancer Mother Kecia Family history of lung cancer - (Added by TW Conv) Osteoarthritis Mother Kecia Family histor y of osteoarthritis - (Added by TW Conv) Transient ischemic attack Mother Kecia Ulcerative colitis Mother Kecia Family hi story of ulcerative colitis - (Added by TW Conv) Colon cancer Paternal Grandmother Breast cancer Paternal cousin Ovarian cancer Paternal cousin Breast cancer Sister 1 Desiree Family history of malignant neoplasm of breast - (Added by TW Conv) Cancer Sister 1 [place] Breast cancer Sister 2 [place] Cancer Sister 2 [place] Fibromyalgia Sister 2 [place] Family history of fibromyalgia - (Added by TW Conv) Anesthesia problems Neg Hx Epilepsy Neg Hx Relation Name Status Comments Father Vitaly Maternal Grandmother Mother Kecia Paternal Grandmother Paternal cousin Sister 1 [place] Alive Sister 2 [place] Alive Social History Tobacco Use Types Packs/Day Years Used Date Smoking Tobacco: Never Passive Smoke Exposure: Never Smokeless Tobacco: Never Tobacco Cessation:Counseling Given: Not Answered Alcohol Use Standard Drinks/Week Comments Yes 0 (1 standard drink = 0.6 oz pur e alcohol) social [employer] Utilities Answer Date Recorded In the past 12 months has [employer], gas, oil, or water [employer] threatened to shut off services in your home? No 03/22/2024 Social Connection and Isolation Panel [NHANES] A nswer Date Recorded In a typical week, how many times do you talk on the phone with family, friends, or neighbors? Once a week 06/09/20 How often do you get togethe r with friends or relatives? Once a week 06/09/2024 How often do you attend chur or holiness services? 1 to 4 times per year 06/09/2024 Do you belong to any clubs o r organizations such as latter day groups, unions, fraternal or athletic groups, or [...] Recorded Patient Health Questionnaire-2 Score 2 06/09/2024 [facility] - Occupational Stress Questionnaire Answer Date Recorded [...] any time in the past 12 m [facility], were you homeless or living in a prison (including now)? No 06/09/2024 Personal Safety Answer Date Recorded Have you ever been in or are you currently in a harmful physical or emotional relationship or is someone making you feel afraid or unsafe? 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 Not on file Not on file Not on file Obstetrics History Para Term AB IAB SAB Ectopic Multiple Livin g Live Births 1 1 1 Date Outcome GA Total Labor Labor/2nd/3rd Weight Sex Type Anes PTL Sandra A1 A5 Name Clin Term Last Filed Vital Signs Vital Sign Reading Time Taken Comments Blood Pressure 146/85 08/30/2024 8:16 AM SCOURING TRAIN OPERATOR Pulse 86 08/30/2024 8:16 AM SCOURING TRAIN OPERATOR Temperature 36.5 C (97.7 F) 08/30/2024 8:16 AM SCOURING TRAIN OPERATOR Respiratory Rate 17 06/14/2024 10:25 AM CDT Oxygen Saturation 96% 08/30/2024 8:16 AM SCOURING TRAIN OPERATOR Inhaled Oxygen Concentration - - Weight 80.1 kg (176 lb 9.6 oz) 09/02/2024 8:51 A M SCOURING TRAIN OPERATOR Height 160 cm (5' 3 ) 09/02/2024 8:51 AM SCOURING TRAIN OPERATOR Body Mass Index 31.28 09/02/2024 8:51 AM SCOURING TRAIN OPERATOR Plan of Treatment Health Maintenance Due Date Last Done Comments DTaP/Tdap/Td Vaccine (1 - Tdap) 02/28/1975 Regular Well Visit/Exam 18-64 02/28/1982 Pneumococcal vaccine <65 (1 of 2 - PCV) 02/28/1983 Zoster Vaccine (1 of 2) 02/28/2014 Covid-19 Vaccine (4 - 2023-2 5 season) 2024 06/28/2021, 11/10/2020, 10/16/2020 Breast Cancer Screening-Mammogram 01/01/2025 024 Influenza Vaccine (Season Ended) 2025 07/11/20, 07/30/2022 Depression Screening 06/09/2025 06/09/2024 Colon Cancer Screening-Colonoscopy 06/14/20342023 Hepatitis B Screening Completed 11/07/2023 Hepatitis C Screening Completed 11/07/2023 Colon Cancer Screening-CT Colonography Discontinued 06/14/2024 Colon Cancer Screening-DNA Stool Discontinued 06/14/20 Colon Cancer Screening-FIT Discontinued 06/14/2024 Colon Cancer Screening-Sigmoidoscopy Discontinued 05/24 Goals Goal Patient Goal Type Associated Problems Recent Progress Patient-Stated? Author CCM Chronic Pain Care Plan Chronic Care Management Afsaneh Castillo RN Note: Problem: Chronic Pain Goals: 1. Minimize further functional decline 2. Maximize quality of life 3. Control pain Strategies: - Activity/exercise program recommendation - Conservative stepwise pain medicine strategy with multi-disciplinary approach - Recommend healthy lifestyle strategies and compensatory methods as needed Medical Devices Implanted Type Area Histology Supervisor Device Identifier Shelf Expiration Date Model / Serial / Lot Allosource Crushed Chip Frozen Graft 30ml Bone Cancellous [id number] - [id number] Implanted:Qty: 1 on 03/17/2024 by Markie Bates MD at [facility] N/A: Spine Lumbar Allosource 03/15/2028 [id number] / / [id number] Depuy Synthes Spine Expedium 5.5mm 50mm Polyaxial Spine Screw Bone Titanium 5.5mm Bladimir [id number] - [id number] Implanted:Qty: 4 on 03/17/2024 by Markie Bates MD at [facility] N/A: Spine Lumbar Depuy Synthes Spine [id number] / / Depuy Synthes Spine Expedium 5.5mm 35mm Line Prebent Bladimir Spinal Titanium Nonsterile [id number] - [id number] Implanted:Qty: 2 on 03/17/2024 by Markie Bates MD at [facility] N/A: Spine Lumbar Depuy Synthes Spine [id number] / / Depuy Synthes Spine Expedium 1 Inner Monoaxial Spine Screw Set Titanium [id number] - [id number] Implanted:Qty: 4 on 03/17/2024 by Markie Bates MD at [facility] N/A: Spine Lumbar Depuy Synthes Spine [id number] / / Depuy Synthes Spine Substitute Bone Graft Fibergraft Large Bioactive Glass Putty [id number] - [id number] Implanted:Qty: 1 on 03/17/2024 by Markie Bates MD at [facility] N/A: Spine Lumbar Depuy Synthes Spine 10/09/2026 [id number] / / Procedures Procedure Name Priority Date/Time Associated Diagnosis Comments US GUIDED THYROID FINE NEEDLE ASPIRATION 1ST LESION Schedule Routine, Read Routine (OP Routine) 11/12/2024 11:24 AM SCOURING TRAIN OPERATOR Right thyroid nodule CYTOLOGY Routine 11/12/2024 11:14 AM SCOURING TRAIN OPERATOR Right thyroid nodule XR FOOT RIGHT 3 OR MORE VIEWS Schedule Routine, Read Routine (OP Routine) 10/29/2024 4:13 PM SCOURING TRAIN OPERATOR Pain in toe of right foot US THYROID Schedule Routine, Read Routine (OP Routine) 10/29/2024 3:48 PM SCOURING TRAIN OPERATOR Enlarged thyroid MRI NECK SOFT TISSUE W WO CONTRAST Schedule Routine, Read Routine (OP Routine) 10/16/2024 10:26 AM SCOURING TRAIN OPERATOR Sicca syndrome CBC WITHOUT DIFFERENTIAL Routine 10/08/2024 11:07 AM SCOURING TRAIN OPERATOR Other iron deficiency anemia COLONOSCOPY 06/14/2024 9:18 AM CDT SCREENING MAMMOGRAM BILATERAL W ANMOL Schedule Routine, Read Routine (OP Routine) 01/02/2024 2:27 PM CDT Encounter for screening mammogram for malignant neoplasm of breast HEPATITIS C ANTIBODY Routine 11/07/2023 11:14 AM SCOURING TRAIN OPERATOR from Last 3 Months or Most Recently Relevant to Health Maintenance Results * US Guided Thyroid Fine Needle Aspiration 1st Lesion (11/12/2024 11:24 AM SCOURING TRAIN OPERATOR) Anatomical Region Laterality Modality Thyroid N/A Ultrasound 11/12/2024 12:2 1 PM SCOURING TRAIN OPERATOR Impressions 11/12/2024 12:21 PM SCOURING TRAIN OPERATOR 1. Successful thyroid biopsy of the low suspicion nodule in the right lobe of the thyroid. The radiology attending physician has personally reviewed this study, and had reviewed and/or edited this written report and agrees with it. Electronically signed by: Daniela Marquez PA-C Narrative 11/12/2024 12:21 PM SCOURING TRAIN OPERATOR EXAMINATION: ULTRASOUND-GUIDED THYROID FINE NEEDLE ASPIRATION HISTORY: 59-year-old woman with a right thyroid TR3 nodule. Radiology was consulted for sampling. COMPARISON: Thyroid sonogram 10/29/2024. MRI neck 10/16/2024. FINDINGS: Biopsy #: 1 Nodule reference number based on prior diagnostic ultrasound: 1 Size: 3.5 cm craniocaudal x 2.2 cm transverse x 1.5 cm AP Maximum Size: 3.5 cm Location: Right lower ACR TI-RADS risk category: TR3 (3 points) Reason for biopsy: meets ACR TI-RADS criteria FINE NEEDLE ASPIRATION: The procedure for ultrasound-guided FNA and its benefits and risks were explained to the patient. Risks were explained to include, but not be limited to, hemorrhage, infection, injury to adjacent organs, non-diagnostic specimen and adverse reaction to medications administered. The patient voiced understanding and wished to proceed and signed the consent form. A site was localized for fine needle aspiration. The site was prepped and draped in the usual manner. 8 mL of 1% Lidocaine was used for local anesthesia. 6 passes were made with 25 gauge needles into the lesion. Appropriate needle localization was documented with continuous sonographic guidance. The fine needle aspirates were handed to the borematic machine operator present during the procedure. Please refer to the dictated cytology report for final interpretation. The patient's skin was cleaned and dressed. The patient tolerated the procedure well without immediate complication. Daniela Marquez PA-C, the Physician Claims Attorney, was present from the beginning to the end of the procedure. Daniela CORTÉS performed the biopsy. Dr. Arsh Conn (resident engineer) was present and participated in the procedure. Procedure Note Daniela Marquez PA - 11/12/2024 EXAMINATION: ULTRASOUND-GUIDED THYROID FINE NEEDLE ASPIRATION HISTORY: 59-year-old woman with a right thyroid TR3 nodule. Radiology was consulted for sampling. COMPARISON: Thyroid sonogram 10/29/2024. MRI neck 10/16/2024. FINDINGS: Biopsy #: 1 Nodule reference number based on prior diagnostic ultrasound: 1 Size: 3.5 cm craniocaudal x 2.2 cm transverse x 1.5 cm AP Maximum Size: 3.5 cm Location: Right lower ACR TI-RADS risk category: TR3 (3 points) Reason for biopsy: meets ACR TI-RADS criteria FINE NEEDLE ASPIRATION: The procedure for ultrasound-guided FNA and its benefits and risks were explained to the patient. Risks were explained to include, but not be limited to, hemorrhage, infection, injury to adjacent organs, non-diagnostic specimen and adverse reaction to medications administered. The patient voiced understanding and wished to proceed and signed the consent form. A site was localized for fine needle aspiration. The site was prepped and draped in the usual manner. 8 mL of 1% Lidocaine was used for local anesthesia. 6 passes were made with 25 gauge needles into the lesion. Appropriate needle localization was documented with continuous sonographic guidance. The fine needle aspirates were handed to the borematic machine operator present during the procedure. Please refer to the dictated cytology report for final interpretation. The patient's skin was cleaned and dressed. The patient tolerated the procedure well without immediate complication. Daniela Marquez PA-C, the Physician Claims Attorney, was present from the beginning to the end of the procedure. Daniela CORTÉS performed the biopsy. Dr. Arsh Conn (resident engineer) was present and participated in the procedure. IMPRESSION: 1. Successful thyroid biopsy of the low suspicion nodule in the right lobe of the thyroid. The radiology attending physician has personally reviewed this study, and had reviewed and/or edited this written report and agrees with it. Electronically signed by: Daniela Marquez PA-C Ashleigh Clark MD [facility] US PROCEDURES Catalina l Result * Cytology (11/12/2024 11:14 AM SCOURING TRAIN OPERATOR) Fine needle aspirate (Thyroid Gland (Cytology)) 11/12/2024 11:04 AM SCOURING TRAIN OPERATOR Narrative PATHOLOGY [facility] - 11/15/2024 5:10 PM SCOURING TRAIN OPERATOR EPIC results best viewed via link to PDF [facility] [place] [address] Note to Patients: This report may contain a detailed description of human tissue sent by a health care provider to the laboratory for pathologic evaluation. The content of this report is essential for diagnosis and may provide important critical findings. This information may be unfamiliar to patients to review without a medical professional present. It is advised that the patient review this report in the presence of a health care provider who can answer questions and explain the details. CYTOPATHOLOGY REPORT FINAL Patient Name: GIOVANNY YEAGER Gender: F : 1965 (Age: 59) Address: [address] [place], [place] [id number] Hospital #: [id number] Taken:11/12/2024 Received:11/12/2024 Reported: 11/15/2024 Patient Type: [facility] Ancillary Service: UNKNOWN Location: Physician(s): MD Ashleigh Brown M.D. FINAL DIAGNOSIS A. Thyroid, right lobe, ultrasound-guided fine needle aspiration: - Benign pamo/11/15/2024 10:14 By this signature, I attest that the above diagnosis is based upon my personal examination of the slides(and/or other material indicated in the diagnosis). Wendi Ramos M.D. Report Electronically Reviewed and Signed Out By Wendi Ramos M.D. 11/15/2024 17:10:28 Marley Reno MS, [facility] Gross Description A. Thyroid, right lobe, ultrasound guided, fine needle aspiration: 2 Pap stained smear(s) and 2 Diff-Quik stained smear(s). 1 ThinPrep prepared from needle rinse tube. Aspirated by clinician. (ML) Material for Thyroseq was collected but not requested as reflex testing. Contact pathology at for additional testing. Clinical Diagnosis and History The patient is a 59-year-old woman with a right thyroid nodule. REPORT IMAGES AND SCANNED DOCUMENTS, IF INCLUDED, ONLY VIEWABLE IN PDF VERSION OF REPORT The performance characteristics of some immunohistochemical stains, in-situ hybridization and fluorescence in-situ hybridization tests and immunophenotyping by flow cytometry cited in this report (if any) were determined by the Surgical Pathology and Flow Cytometry Departments at [facility] as part of an ongoing clinical quality assurance associate program and in compliance with federally mandated regulations drawn from the Clinical Laboratory Improvement Act of 1988 (CLIA '88). Some of these tests rely on the use of analyte specific reagents and are subject to specific labeling requirements by the US Food and Drug Administration. Such diagnostic tests may only be performed in a facility that is certified by the Department of Health and Human Services as a high complexity laboratory under CLIA '88. The FDA has determined that such clearance or approval is not necessary. This test is used for clinical purposes. It should not be regarded as investigational or for research. Nevertheless, federal rules concerning the medical use of analyte specific reagents require that the following disclaimer be attached to the report: This test was developed and its performance characteristics determined by the Surgical Pathology and Flow Cytometry Departments of [facility]. It has not been cleared or approved by the U. S. Food and Drug Administration. Ashleigh Clark MD LAB CYTOLOGY ORDERABLE S Final Result PATHOLOGY [facility] 3rd Floor [place], [place] [phone] * XR Foot Right 3 or More Views (10/29/2024 4:13 PM SCOURING TRAIN OPERATOR) Anatomical Region Laterality Modality Lower Extremities, Foot Right Computed Radiography 10/29/2024 4:40 PM SCOURING TRAIN OPERATOR Impressions 10/29/2024 4:44 PM SCOURING TRAIN OPERATOR 1. 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 Dictated by: Tom Lemus MD The radiology attending physician has personally reviewed this study, and had reviewed and/or edited this written report and agrees with it. Electronically signed by: Tony Parish D.O. Narrative 10/29/2024 4:44 PM SCOURING TRAIN OPERATOR EXAMINATION: XR FOOT RIGHT 3 OR MORE VIEWS HISTORY: Right great toe pain. FINDINGS: No prior radiographs available for comparison. No acute fracture. 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 Alignment appears normal on these nonweightbearing radiographs. Procedure Note Tony Parish, DO - 10/29/2024 EXAMINATION: XR FOOT RIGHT 3 OR MORE VIEWS HISTORY: Right great toe pain. FINDINGS: No prior radiographs available for comparison. No acute fracture. 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 Alignment appears normal on these nonweightbearing radiographs. IMPRESSION: 1. 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 Dictated by: Tom Lemus MD The radiology attending physician has personally reviewed this study, and had reviewed and/or edited this written report and agrees with it. Electronically signed by: Tony Parish D.O. us Brenda Peters [employer] IMG XR PROCEDURES Final Resu lt * US Thyroid (10/29/2024 3:48 PM SCOURING TRAIN OPERATOR) Anatomical Region Laterality Modality Head and Neck N/A Ultrasound 10/29/2024 4:25 PM SCOURING TRAIN OPERATOR Impressions 10/29/2024 4:25 PM SCOURING TRAIN OPERATOR 1. A TR 3 right thyroid nodule meets criteria for further evaluation by FNA per ACR guidelines. 2. Additional left inferior posterior nodule is likely spongiform; however, given suboptimal visualization, recommend attention on follow-up imaging. ACR TI-RADS recommendations TR5 (>=7 points) (risk of malignancy > 20%) >=1 cm: FNA 0.5-0.9 cm: follow-up US every year for 5 years <0.5 cm: no further evaluation TR4 (4-6 points) (risk of malignancy 5-20%) >=1.5 cm: FNA 1-1.4 cm: follow-up US in 1, 2, 3, and 5 years <1.0 cm: no further evaluation TR3 (3 points) (risk of malignancy 2-5%) >=2.5 cm: FNA 1.5-2.4 cm: follow-up US in 1, 3, and 5 years <1.5 cm: no further evaluation TR2 (2 points) and TR1 (0 points) (risk of malignancy < 2%) No FNA or follow-up US Electronically signed by: Ileana Hastings M.D. Narrative 10/29/2024 4:25 PM SCOURING TRAIN OPERATOR EXAMINATION: THYROID SONOGRAM HISTORY: Enlarged thyroid Comparison: None FINDINGS: The thyroid is mildly enlarged Size right lobe: 5.8 x 2.7 x 1.9 cm. Size left lobe: 4.4 x 2.4 x 1.6 cm. Isthmus thickness: 0.2 cm. No suspicious cervical lymph nodes. Nodules that meet criteria for follow-up or FNA per ACR TI-RADS guidelines: Nodule 1, solid and predominantly isoechoic, measuring 3 x 2 x 1.6 cm. TR 3. ACR recommendation: FNA Nodule 2, left inferior posterior, suboptimally visualized, measuring 1 x 0.7 x 0.9. This is favored to be spongiform; however, given suboptimal visualization and apparent taller than wide morphology, recommend attention on follow-up imaging. Right medial inferior nodule is mixed cystic solid and isoechoic, benign, TR2. This measures 2.2 x 1.5 x 0.9. This does not require further follow-up. Similarly, a left inferior nodule measuring 1.5 x 1.1 x 0.8 is mixed cystic solid and isoechoic, benign, TR2. No need for further follow-up. A macrocalcification in the medial right thyroid is not associated with a discrete nodule and does not meet criteria for further follow-up at this time. No suspicious cervical lymph nodes. Procedure Note Ileana Hastings MD - 10/29/2024 EXAMINATION: THYROID SONOGRAM HISTORY: Enlarged thyroid Comparison: None FINDINGS: The thyroid is mildly enlarged Size right lobe: 5.8 x 2.7 x 1.9 cm. Size left lobe: 4.4 x 2.4 x 1.6 cm. Isthmus thickness: 0.2 cm. No suspicious cervical lymph nodes. Nodules that meet criteria for follow-up or FNA per ACR TI-RADS guidelines: Nodule 1, solid and predominantly isoechoic, measuring 3 x 2 x 1.6 cm. TR 3. ACR recommendation: FNA Nodule 2, left inferior posterior, suboptimally visualized, measuring 1 x 0.7 x 0.9. This is favored to be spongiform; however, given suboptimal visualization and apparent taller than wide morphology, recommend attention on follow-up imaging. Right medial inferior nodule is mixed cystic solid and isoechoic, benign, TR2. This measures 2.2 x 1.5 x 0.9. This does not require further follow-up. Similarly, a left inferior nodule measuring 1.5 x 1.1 x 0.8 is mixed cystic solid and isoechoic, benign, TR2. No need for further follow-up. A macrocalcification in the medial right thyroid is not associated with a discrete nodule and does not meet criteria for further follow-up at this time. No suspicious cervical lymph nodes. IMPRESSION: 1. A TR 3 right thyroid nodule meets criteria for further evaluation by FNA per ACR guidelines. 2. Additional left inferior posterior nodule is likely spongiform; however, given suboptimal visualization, recommend attention on follow-up imaging. ACR TI-RADS recommendations TR5 (>=7 points) (risk of malignancy > 20%) >=1 cm: FNA 0.5-0.9 cm: follow-up US every year for 5 years <0.5 cm: no further evaluation TR4 (4-6 points) (risk of malignancy 5-20%) >=1.5 cm: FNA 1-1.4 cm: follow-up US in 1, 2, 3, and 5 years <1.0 cm: no further evaluation TR3 (3 points) (risk of malignancy 2-5%) >=2.5 cm: FNA 1.5-2.4 cm: follow-up US in 1, 3, and 5 years <1.5 cm: no further evaluation TR2 (2 points) and TR1 (0 points) (risk of malignancy < 2%) No FNA or follow-up US Electronically signed by: Ileana Hastings M.D. us Ashleigh Clark MD IM US PROCEDURES Catalina l Result * MRI Neck Soft Tissue WWO Contrast (10/16/2024 10:26 AM SCOURING TRAIN OPERATOR) Anatomical Region Laterality Modality Head and Neck N/A Magnetic Resonan ce 10/18/2024 8:09 AM SCOURING TRAIN OPERATOR Narrative 10/18/2024 8:38 AM SCOURING TRAIN OPERATOR EXAM DESCRIPTION: MRI NECK SOFT TISSUE W WO CONTRAST REASON FOR STUDY: Chronic intermittent right base of tongue pain for several years. No provided history of trauma or inciting and/or aggravating events. No provided smoking history. No provided past medical, to include cancer, history. No provided surgical history. Technique: Multiplanar multisequence imaging of the soft tissues of the neck performed with and without intravenous contrast. All images stored on PACS. CONTRAST TYPE/DOSE: 16 mL Dotarem injected via peripheral IV site without reported incident. COMPARISON: Ultrasound soft tissue head/neck 08/06/2024; relevant portions of MRI cervical spine without contrast 05/08/2024; relevant portions of scoliosis radiographic series 04/27/2024; DEXA scan 01/02/2024: Reported as normal bone mass; relevant portions of cervical spine radiograph 12/31/2022; CTA head/neck without and with contrast 06/23/2022; relevant portions of MRI brain/MRV head without and with contrast 09/03/2022 FINDINGS: SOFT TISSUE: No MR evidence of discrete mass, focal fluid collection, edema, and/or acute inflammatory changes. No abnormal enhancement. ORAL CAVITY/FLOOR OF MOUTH, PHARYNX, LARYNX, HYPOPHARYNX: No acute abnormality, noting stable conformation and appearance of the piriformis sinuses. Widely patent airway. Correlate with findings at time of direct visualization. LYMPHADENOPATHY: No lymphadenopathy by size criteria. MAJOR SALIVARY GLANDS: No MR evidence of discrete mass, focal fluid collection, edema, and/or acute inflammatory changes. No abnormal enhancement. THYROID: Normal in size with appearance of interval enlargement of a now approximately 3 x 1.5 x 2 cm (CC by AP by TV) right thyroid lobe nodule. VASCULATURE: No occlusion or hemodynamically significant stenosis demonstrated. INTRACRANIAL/SKULL BASE/INCLUDED ORBITS: Limited intracranial evaluation. No gross evidence of acute intracranial process, noting area of encephalomalacia with surrounding gliosis and marginal chronic hemorrhagic products and/or hemosiderin staining of the left temporal pole. Visualized orbital contents unremarkable. PARANASAL SINUSES: Well-aerated. CERVICAL SPINE: Robust metal streak artifact from C5-6 intervertebral replacement disc. LUNG APICES: Clear. OTHER: No other significant finding. IMPRESSION: 1. Interval enlargement of a now approximately 3 cm right thyroid lobe nodule. 2. Thyroid ultrasound recommended for further evaluation. 3. Otherwise, no acute process with chronic findings as above on MRI soft tissue neck. 4. Correlate with direct visualization findings. THIS IS AN ELECTRONICALLY VERIFIED FINAL REPORT 10/18/2024 8:38 AM - Electronically signed by Duarte Morgan M.D. ERICA T: Report ID: [id number] Reading Location: [place] [address] Procedure Note Duarte Morgan MD - 10/18/2024 EXAM DESCRIPTION: MRI NECK SOFT TISSUE W WO CONTRAST REASON FOR STUDY: Chronic intermittent right base of tongue pain forseveral years. No provided history of trauma or inciting and/or aggravatingevents. No provided smoking history. No provided past medical, to include cancer, history. No provided surgical history. Technique: Multiplanar multisequence imaging of the soft tissues of theneck performed with and without intravenous contrast. All images stored on[employer]. CONTRAST TYPE/DOSE: 16 mL Dotarem injected via peripheral IV sitewithout reported incident. COMPARISON: Ultrasound soft tissue head/neck 08/06/2024; relevant portionsof MRI cervical spine without contrast 05/08/2024; relevant portions ofscoliosis radiographic series 04/27/2024; DEXA scan 01/02/2024: Reported as normalbone mass; relevant portions of cervical spine radiograph 12/31/2022; CTAhead/neck without and with contrast 06/23/2022; relevant portions of MRI brain/MRVhead without and with contrast 09/03/2022 FINDINGS: SOFT TISSUE: No MR evidence of discrete mass, focal fluid collection, edema, and/or acute inflammatory changes. No abnormal enhancement. ORAL CAVITY/FLOOR OF MOUTH, PHARYNX, LARYNX, HYPOPHARYNX: No acute abnormality, noting stable conformation and appearance of the piriformis sinuses. Widely patent airway. Correlate with findings at time of direct visualization. LYMPHADENOPATHY: No lymphadenopathy by size criteria. MAJOR SALIVARY GLANDS: No MR evidence of discrete mass, focal fluid collection, edema, and/or acute inflammatory changes. No abnormal enhancement. THYROID: Normal in size with appearance of interval enlargement of a now approximately 3 x 1.5 x 2 cm (CC by AP by TV) right thyroid lobe nodule. VASCULATURE: No occlusion or hemodynamically significant stenosis demonstrated. INTRACRANIAL/SKULL BASE/INCLUDED ORBITS: Limited intracranial evaluation.No gross evidence of acute intracranial process, noting area ofencephalomalacia with surrounding gliosis and marginal chronic hemorrhagic products and/or hemosiderin staining of the left temporal pole. Visualized orbitalcontents unremarkable. PARANASAL SINUSES: Well-aerated. CERVICAL SPINE: Robust metal streak artifact from C5-6 intervertebral replacement disc. LUNG APICES: Clear. OTHER: No other significant finding. IMPRESSION: 1. Interval enlargement of a now approximately 3 cm right thyroid lobe nodule. 2. Thyroid ultrasound recommended for further evaluation. 3. Otherwise, no acute process with chronic findings as above on MRIsoft tissue neck. 4. Correlate with direct visualization findings. THIS IS AN ELECTRONICALLY VERIFIED FINAL REPORT 10/18/2024 8:38 AM - Electronically signed by Duarte Morgan M.D. ERICA T: Report ID: [id number] Reading Location: [place] [address] Ashleigh Clark MD IMG MRI PROCEDURES Fin al Result * (ABNORMAL) CBC without differential (10/08/2024 11:07 AM SCOURING TRAIN OPERATOR) WBC 8.2 3.8 - 9.9 K/cumm Hgb 13.1 11.9 - 15.5 g/dL CERNER CH Hct 43.3 35.6 - 45.5 % CERNER [facility] Plt 408(H) 150 - 400 K/cumm [facility] MPV 9.3 9.1 - 12.3 fL [facility] RBC 4.71 3.90 - 5.20 M/cumm [facility] MCV 91.9 81.3 - 96.4 fL [facility] MCH 27.8 27.1 - 33.3 pg [facility]ERNER [facility] MCHC 30.3(L) 32.3 - 35.7 g/dL [facility]ERN[facility] RDW CV 14.4 11.1 - 14.9 % [facility] RDW SD 49.1(H) 35.7 - 48.1 fL [facility] NRBC abs 0.00 0.00 - 0.01 K/cumm [facility] Blood 10/08/2024 11:0 7 AM SCOURING TRAIN OPERATOR 10/08/2024 4:55 PM SCOURING TRAIN OPERATOR Ericka Robles MD LAB BLOOD [place] [address] [place] Department of Laboratories [place] [id number] * Colonoscopy (06/14/2024 9:18 AM CDT) Anatomical Region Laterality Modality Other Narrative Procedure Note Richard Sims MD - 06/14/2024 9:18 AM CDT [facility] Patient Name: Giovanny Yeager Procedure Date: 06/14/2024 9:18 AM Date of : 1965 Admit Type: Outpatient Age: 59 Gender: Female Attending MD: Richard Sims M.D. Room: [facility] ENDOSCOPY ROOM 02 Note Status: Finalized Procedure: Colonoscopy Indications: Personal history of malignant neoplasm of thecolon Referring MD: Kayode Cerda NP Providers: Richard Sims M.D. Medicines: Propofol per Anesthesia Complications: No immediate complications. Estimated Blood Loss: Estimated blood loss: none. Procedure: Pre-Anesthesia Assessment: - After reviewing the risks and benefits, thepatient was deemed in satisfactory condition to undergo the procedure. - Immediately prior to administration ofmedications, the patient was re-assessed for adequacy to receive sedatives. The benefits, risks and alternatives of theprocedure and sedation were discussed and informed consentwas obtained. All questions were answered. Please referto the signed informed consent document in the medical record. The scope was passed under direct vision.The [id number] Colonoscope was introducedthrough the anus and advanced to the the ileocolonic anastomosis. The colonoscopy was performed without difficulty. The patient tolerated the procedurewell. The quality of the bowel preparation was good. The bowel preparation used was SUPREP. Findings: The perianal and digital rectal examinations were normal. The anastomosis appeared normal. The colon (entire examined portion) appeared normal. Impression: - The colonic anastomosis is normal. - The entire examined colon is normal. - No specimens collected. Recommendation: - Repeat colonoscopy in 3 years for surveillance. Electronically signed by Dread Sims Richard Sims M.D. 06/14/2024 10:14:07 AM Number of Addenda: 0 Note Initiated On: 06/14/2024 9:18 AM Recognized by the [employer] for promoting quality in endoscopy Richard Sims MD ENDOSCOPY PROCEDURES Final Res ult * Screening Mammogram Bilateral W Anmol (01/02/2024 2:27 PM CDT) Anatomical Region Laterality Modality Breast Bilateral Mammography Impressions 01/16/2024 2:22 PM CDT BI-RADS ATLAS category (overall): 1 - Negative There is no mammographic evidence of malignancy. A 1 year screening mammogram is recommended. The patient has been or will be contacted. We recommend annual screening mammography for women at average risk of breast cancer beginning at age 40, based on guidelines of the [place] [employer] (ACR Practice Parameter for the Performance of Screening and Diagnostic Mammography) and [place]. For women with and elevated risk of breast cancer, please refer to the ACR Practice Parameter for specific screening recommendations. The patient will be entered into a reminder system with a target due date of 1 year for her next screening exam. Narrative 01/16/2024 2:22 PM CDT Screening Mammogram Bilateral W Anmol: 01/02/24 The study was acquired using full field digital technology and interpreted from soft copy. 2D digital mammographic views, as well as 3D digital tomosynthesis were performed in the CC and MLO projections. CLINICAL: Encounter for screening mammogram for malignant neoplasm of breast. Medical history includes colon cancer. History of breast cancer in Mother, Sister, Sister, Paternal cousin. COMPARISONS: 05/25/2021 Breast Imaging Screening Outside Reference 04/21/2020 Breast Imaging Screening Outside Reference BREAST TISSUE: The breasts have scattered areas of fibroglandular density. FINDINGS: No suspicious masses, suspicious calcifications, or other suspicious findings are seen within either breast. There has been no suspicious change. us Audrey Hollis MD IMG MAMMO PROCEDURES Fin al Result * Hepatitis C antibody Blood (11/07/2023 11:14 AM SCOURING TRAIN OPERATOR) Hep C Ab Nonreactive Nonreactive BRAD MICHELE Comment: Antibodies to HCV not detected. Does NOT exclude the possibility of recent exposure to HCV. Current interpretive data was last revised on 22 Interpretive Data Nonreactive: Antibodies to HCV not detected. Does NOT exclude the possibility of recent exposure to HCV. Equivocal: Equivocal for HCV antibodies. Supplemental molecular testing will be automatically performed to determine infection status in accordance with current CDC screening recommendations. Reactive: Positive for HCV antibodies. This may represent current or past HCV infection. Supplemental molecular testing will be automatically performed to determine current infection status in accordance with current CDC screening recommendations. Interpretive data was last revised on 2019. Blood 11/07/2023 11:1 4 AM SCOURING TRAIN OPERATOR 11/07/2023 3:59 PM SCOURING TRAIN OPERATOR us Elva Langford MD LAB MICROBIOLOGY - GENERA L ORDERABLES Edited Result - Final BRAD [address] [facility] Department [place] [address] from Last 3 Months or Most Recently Relevant to Health Maintenance Insurance [facility] Member Subscriber Plan / Payer (Ef fective 2018-Present) Name:Giovanny Yeager Relation to Subscriber:Self Name:Giovanny Yeager Payer ID:[id number] (NAIC) Group ID:Not on file Type:IAT-Auto Address: [address] [place] [facility] HMO/PPO Address: [address] [address] [place] [address] [facility] H[facility]/PPO Address: [facility] [address] [place] [address] Advance Directives For more information, please contact: [phone] * Full Code (Latest Code Status on File) Date Activated Date Inactivated Comments 06/14/2024 7:53 AM 06/14/2024 2:45 PM * Full Code Date Activated Date Inactivated Comments 03/17/2024 6:18 PM 03/20/2024 3:11 PM * Full Code Date Activated Date Inactivated Comments 07/09/2023 7:32 PM 07/11/2023 8:12 PM * Full Code Date Activated Date Inactivated Comments 06/23/2022 7:10 AM 06/29/2022 9:23 PM Care Teams Warehouse Guard Relationship Specialty Start Date End Date Kayode Cerda NP [address] [place] [address] PCP - General Family Medicine 04/30/24 Shiv Adam MD Consulting Physician Cardiology 06/09/19 Arnold Zhang MD [address] [place] [address] Consulting Physician Neurosurgery 06/29/22 Elva Langford MD [address] [place] [address] Consulting Physician Gastroenterology 05/21/23 Richard Sims MD [id number] [place] [address] Surgeon Colon and Rectal Surgery 06/10/23
--- OUTSIDE RECORDS SUMMARY | 2025-01-05 06:16 | XMS_ITS | Referral Summary ---
Author Organization [facility] Advanced [facility] Address [address] [place] [address] Care Team Providers Care Tube Handler Name Role Phone Shiv Adam MD Unavailable Arnold Zhang MD Unavailable Elva Langford MD Unavailable [phone] Richard Sims MD Unavailable [phone] Kayode Cerda NP Primary Care Provider [phone] Encounters Date Type Department Care Team Description 12/06/2024 Telephone [facility] General Neurology [address] [facility] Advanced Medicine 6th [place] [address] [place] [address] Belgica Gregory, RN 12/01/2024 Telephone [facility] General Neurology [address] [facility] Medicine 6th [place] [address] [place] [address] Belgica Gregory, RN 11/15/2024 Results Follow-Up [facility] [address] [facility] [address] [place] [address] Ashleigh Clark MD 11/12/2024 10:07 AM CANOPY INSPECTOR - 11/12/2024 11:59 PM CANOPY INSPECTOR Hospital Encounter [facility] [address] [place] [address] Right thyroid nodule Discharge Disposition: Discharge to home or self care 11/08/2024 Telephone [facility] [address] [place] [address] Akosua Novoa RN 11/05/2024 Orders Only [facility] ([facility] [address] [facility] 11th [place] [address] [place] [phone] Ashleigh Clark MD Right thyroid nodule (Primary Dx); Thyroid nodule 11/05/[address] [facility] ([facility]) [facility] [address] [facility] 11th [place] [address] [place] [phone] Makenna Cuellar CMA 11/01/2024 1:20 PM CANOPY INSPECTOR Telemedicine [facility] [address] [facility] [address] [place] [phone] Ashleigh Clark MD Sicca syndrome (Primary Dx); Right thyroid nodule; Neck pain on right side 10/29/2024 3:57 PM CANOPY INSPECTOR - 10/29/2024 11:59 PM CANOPY INSPECTOR Hospital Encounter [facility] [address] [place] [address] Pain in toe of right foot Discharge Disposition: Discharge to home or self care 10/29/2024 12:25 PM CANOPY INSPECTOR - 10/29/2024 11:59 PM CANOPY INSPECTOR Hospital Encounter [facility] [address] [place] [address] Enlarged thyroid Discharge Disposition: Discharge to home or self care 10/29/2024 12:25 PM CANOPY INSPECTOR - 10/29/2024 11:59 PM CANOPY INSPECTOR Hospital Encounter [facility] Neurodiagnostics [address] [place] [address] Homero Kincaid Rosemary S. 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 ([facility] [address] [facility] 11th [place] [address] [place] [address] Ashleigh Clark MD Enlarged thyroid (Primary Dx) 10/16/2024 8:30 AM CANOPY INSPECTOR - 10/16/2024 11:59 PM CANOPY INSPECTOR Hospital Encounter [address] [address] Sicca syndrome Discharge Disposition: Discharge to home or self care 10/08/2024 Telephone [facility] [address] [facility] 11th [place] [address] [place] [address] Makenna Cuellar CMA 10/08/2024 1:27 PM CANOPY INSPECTOR - 10/08/2024 11:59 PM CANOPY INSPECTOR Hospital Encounter [address] [address] Other iron deficiency anemia Discharge Disposition: Discharge to home or self care 10/08/2024 11:15 AM CANOPY INSPECTOR Lab [facility] Outpatient Lab at [address] [address] Night sweats (Primary Dx) from Last 3 Months Allergies Active Allergy Reactions Criticality Noted Date [...] 1 capsule (290 mcg total) 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 Froilan's equal. Due to pain around mormonism, will order ESR/CRP out of abundance of [...] Monitor Assessment & Plan (09/26/2022 1:43 PM CANOPY INSPECTOR): Photos obtained, flat with overlying drusen SN. [...] monitor Assessment & Plan (09/26/2022 1:46 PM CANOPY INSPECTOR): Patient's intraocular pressure (IOP) in mid teens [...] 09/26/2022 Assessment & Plan (09/26/2022 2:40 PM CANOPY INSPECTOR): Small focal scars left eye (OS). No [...] Neuropathy 01/21/2018 08/30/2024 Carpal tunnel syndrome 03/09/201508/30 Immunizations Immunization Administration Dates Next Due Influenza, Quadrivalent, Spl it, Preservative Free, Intramuscular 07/11/2023,07/30/2022 Social History Tobacco Use Types Packs/Day Years Used Date Smoking Tobacco: Never Passive Smoke Exposure: Never Smokeless Tobacco: Never Tobacco Cessation:Counseling Given: Not Answered Alcohol Use Standard Drinks/Week Comments Yes 0 (1 standard drink = 0.6 oz pur e alcohol) social [employer] Utilities Answer Date Recorded In the past 12 months has th e electric, gas, oil, or water company threatened [...] often do you attend chur ch or holiness services? 1 to 4 times per year 06/09/2024 Do you belong to any clubs o r organizations such as uatsdin groups, unions, fraternal or athletic groups, or [...] Score 2 06/09/2024 [facility] - Occupational Stress Questionnaire Answer Date Recorded [...] any time in the past 12 m [facility], were you homeless or living in a longterm (including now)? No 06/09/2024 Personal Safety Answer Date Recorded Have you ever been in or are you currently in a harmful physical or emotional relationship or is someone making you feel afraid or unsafe? 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 Not on file Not on file Not on file Last Filed Vital Signs Vital Sign Reading Time Taken Comments Blood Pressure 146/85 08/30/2024 8:16 AM CANOPY INSPECTOR Pulse 86 08/30/2024 8:16 AM CANOPY INSPECTOR Temperature 36.5 C (97.7 F) 08/30/2024 8:16 AM CANOPY INSPECTOR Respiratory Rate 17 06/14/2024 10:25 AM CDT Oxygen Saturation 96% 08/30/2024 8:16 AM CANOPY INSPECTOR Inhaled Oxygen Concentration - - Weight 80.1 kg (176 lb 9.6 oz) 09/02/2024 8:51 A M CANOPY INSPECTOR Height 160 cm (5' 3 ) 09/02/2024 8:51 AM CANOPY INSPECTOR Body Mass Index 31.28 09/02/2024 8:51 AM CANOPY INSPECTOR Plan of Treatment Not on file Goals Goal Patient Goal Type Associated Problems Recent Progress Patient-Stated? Author CCM Chronic Pain Care Plan Chronic Care Management No Afsaneh Che, RN Note: Problem: Chronic Pain Goals: 1. Minimize further functional decline 2. Maximize quality of life 3. Control pain Strategies: - Activity/exercise program recommendation - Conservative stepwise pain medicine strategy with multi-disciplinary approach - Recommend healthy lifestyle strategies and compensatory methods as needed Medical Devices Implanted Type Area Track Watchman Device Identifier Shelf Expiration Date Model / Serial / Lot Allosource Crushed Chip Frozen Graft 30ml Bone Cancellous [id number] - [id number] Implanted:Qty: 1 on 03/17/2024 by Markie Bates MD at [facility] N/A: Spine Lumbar Allosource 03/15/2028 [id number] / / [id number] Depuy [place] Spine Expedium 5.5mm 50mm Polyaxial Spine Screw Bone Titanium 5.5mm Bladimir [id number] - [id number] Implanted:Qty: 4 on 03/17/2024 by Markie Bates MD at [facility] N/A: Spine Lumbar Depuy Synthes Spine [id number] / / Depuy Synthes Spine Expedium 5.5mm 35mm Line Prebent Bladimir Spinal Titanium Nonsterile [id number] - [id number] Implanted:Qty: 2 on 03/17/2024 by Markie Bates MD at [facility] N/A: Spine Lumbar Depuy Synthes Spine [id number] / / Depuy Synthes Spine Expedium 1 Inner Monoaxial Spine Screw Set Titanium [id number] - [id number] Implanted:Qty: 4 on 03/17/2024 by Markie Bates MD at [facility] N/A: Spine Lumbar Depuy Synthes Spine [id number] / / Depuy Synthes Spine Substitute Bone Graft Fibergraft Large Bioactive Glass Putty [id number] - [id number] Implanted:Qty: 1 on 03/17/2024 by Markie Bates MD at [facility] N/A: Spine Lumbar Depuy Synthes Spine 10/09/2026 [id number] / / Procedures Procedure Name Priority Date/Time Associated Diagnosis Comments US GUIDED THYROID FINE NEEDLE ASPIRATION 1ST LESION Schedule Routine, Read Routine (OP Routine) 11/12/2024 11:24 AM CANOPY INSPECTOR Right thyroid nodule CYTOLOGY Routine 11/12/2024 11:14 AM CANOPY INSPECTOR Right thyroid nodule XR FOOT RIGHT 3 OR MORE VIEWS Schedule Routine, Read Routine (OP Routine) 10/29/2024 4:13 PM CANOPY INSPECTOR Pain in toe of right foot US THYROID Schedule Routine, Read Routine (OP Routine) 10/29/2024 3:48 PM CANOPY INSPECTOR Enlarged thyroid MRI NECK SOFT TISSUE W WO CONTRAST Schedule Routine, Read Routine (OP Routine) 10/16/2024 10:26 AM CANOPY INSPECTOR Sicca syndrome CBC WITHOUT DIFFERENTIAL Routine 10/08/2024 11:07 AM CANOPY INSPECTOR Other iron deficiency anemia COLONOSCOPY 06/14/2024 9:18 AM CDT SCREENING MAMMOGRAM BILATERAL W ANMOL Schedule Routine, Read Routine (OP Routine) 01/02/2024 2:27 PM CDT Encounter for screening mammogram for malignant neoplasm of breast HEPATITIS C ANTIBODY Routine 11/07/2023 11:14 AM CANOPY INSPECTOR from Last 3 Months or Most Recently Relevant to Health Maintenance Results * US Guided Thyroid Fine Needle Aspiration 1st Lesion (11/12/2024 11:24 AM CANOPY INSPECTOR) Anatomical Region Laterality Modality Thyroid N/A Ultrasound 11/12/2024 12:2 1 PM CANOPY INSPECTOR Impressions 11/12/2024 12:21 PM CANOPY INSPECTOR 1. Successful thyroid biopsy of the low suspicion nodule in the right lobe of the thyroid. The radiology attending physician has personally reviewed this study, and had reviewed and/or edited this written report and agrees with it. Electronically signed by: Daniela Marquez PA-C Narrative 11/12/2024 12:21 PM CANOPY INSPECTOR EXAMINATION: ULTRASOUND-GUIDED THYROID FINE NEEDLE ASPIRATION HISTORY: [...] fine needle aspirates were handed to the senior financial reporting analyst present during the procedure. Please refer to the dictated cytology report for final interpretation. The patient's skin was cleaned and dressed. The patient tolerated the procedure well without immediate complication. Daniela Marquez PA-C, the Physician Electronic Engineering Draftsperson, was present from the beginning to the end of the procedure. Daniela CORTÉS performed the biopsy. Dr. Arsh Conn (vice president of finance) was present and participated in the procedure. [...] fine needle aspirates were handed to the senior financial reporting analyst present during the procedure. Please refer to the dictated cytology report for final interpretation. The patient's skin was cleaned and dressed. The patient tolerated the procedure well without immediate complication. Daniela Marquez PA-C, the Physician Electronic Engineering Draftsperson, was present from the beginning to the end of the procedure. Daniela CORTÉS performed the biopsy. Dr. rAsh Conn (vice president of finance) was present and participated in the procedure. IMPRESSION: 1. Successful thyroid biopsy of the low suspicion nodule in the right lobe of the thyroid. The radiology attending physician has personally reviewed this study, and had reviewed and/or edited this written report and agrees with it. Electronically signed by: Daniela Marquez PA-C Ashleigh Clark MD [facility] [place] PROCEDURES Catalina l Result * Cytology (11/12/2024 11:14 AM CANOPY INSPECTOR) Fine needle aspirate (Thyroid Gland (Cytology)) 11/12/2024 11:04 AM CANOPY INSPECTOR Narrative PATHOLOGY [facility] - 11/15/2024 5:10 PM CANOPY INSPECTOR EPIC results best viewed via link to PDF [facility] Jihan Russell [facility] [place] [address] Note to Patients: This report may contain [...] Gender: F : 1965 (Age: 59) Address: [address] [place] [address] Hospital #: [id number] Taken:11/12/2024 Received:11/12/2024 Reported: 11/15/2024 Patient Type: [facility] Ancillary Service: UNKNOWN Location: Physician(s): MD Ashleigh [...] M.D. 11/15/2024 17:10:28 Marley Reno MS, CT (ASCP) Gross Description A. Thyroid, right lobe, ultrasound [...] Surgical Pathology and Flow Cytometry Departments at [facility] as part of an ongoing quality eng program and in compliance with federally mandated [...] Surgical Pathology and Flow Cytometry Departments of [facility]. It has not been cleared or approved by the U. S. Food and Drug Administration. Ashleigh Clark MD LAB CYTOLOGY ORDERABLE S Final Result PATHOLOGY [place] 3rd Floor [place], [place] [phone] * XR Foot Right 3 or More Views (10/29/2024 4:13 PM CANOPY INSPECTOR) Anatomical Region Laterality Modality Lower Extremities, Foot Right Computed Radiography 10/29/2024 4:40 PM CANOPY INSPECTOR Impressions 10/29/2024 4:44 PM CANOPY INSPECTOR 1. 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 Dictated by: Tom Lemus MD The radiology attending physician has personally reviewed this study, and had reviewed and/or edited this written report and agrees with it. Electronically signed by: Tony aPrish D.O. Narrative 10/29/2024 4:44 PM CANOPY INSPECTOR EXAMINATION: XR FOOT RIGHT 3 OR MORE [...] by: Tony Parish D.O. us Brenda Peters STAVE LOG CUT OFF SAW OPERATOR IMG XR PROCEDURES Final Resu lt * US Thyroid (10/29/2024 3:48 PM CANOPY INSPECTOR) Anatomical Region Laterality Modality Head and Neck N/A Ultrasound 10/29/2024 4:25 PM CANOPY INSPECTOR Impressions 10/29/2024 4:25 PM CANOPY INSPECTOR 1. A TR 3 right thyroid nodule [...] Ileana Hastings M.D. Narrative 10/29/2024 4:25 PM CANOPY INSPECTOR EXAMINATION: THYROID SONOGRAM HISTORY: Enlarged thyroid Comparison: [...] US Electronically signed by: Ileana Hastings M.D. Ashleigh Clark MD [facility] PROCEDURES Catalina l Result * MRI Neck Soft Tissue WWO Contrast (10/16/2024 10:26 AM CANOPY INSPECTOR) Anatomical Region Laterality Modality Head and Neck N/A Magnetic Resonan ce 10/18/2024 8:09 AM CANOPY INSPECTOR Narrative 10/18/2024 8:38 AM CANOPY INSPECTOR EXAM DESCRIPTION: MRI NECK SOFT TISSUE W [...] Duarte Morgan M.D. ERICA T: Report ID: [id number] Reading Location: [place] [address] Procedure Note Duarte Morgan MD - 10/18/2024 EXAM DESCRIPTION: MRI NECK SOFT TISSUE W WO CONTRAST REASON FOR STUDY: Chronic intermittent right base of tongue pain forseveral years. No provided history of trauma or inciting and/or aggravatingevents. No provided smoking history. No provided past medical, to include cancer, history. No provided surgical history. Technique: Multiplanar multisequence imaging of the soft tissues of [facility] performed with and without intravenous contrast. All images stored onPAInfraReDx. CONTRAST TYPE/DOSE: 16 mL Dotarem injected via [...] 8:38 AM - Electronically signed by Duarte MALDONADO T: Report ID: [id number] Reading Location: [place] [address] Ashleigh Clark MD [facility] MRI PROCEDURES Fin al Result * (ABNORMAL) CBC without differential (10/08/2024 11:07 AM CANOPY INSPECTOR) WBC 8.2 3.8 - 9.9 K/cumm Hgb 13.1 11.9 - 15.5 g/dL CERNER CH Hct 43.3 35.6 - 45.5 % [facility] Plt 408(H) 150 - 400 K/cumm [facility] MPV 9.3 9.1 - 12.3 fL [facility] RBC 4.71 3.90 - 5.20 M/cumm [facility] MCV 91.9 81.3 - 96.4 fL [facility] MCH 27.8 27.1 - 33.3 pg [facility] MCHC 30.3(L) 32.3 - 35.7 g/dL [facility] RDW CV 14.4 11.1 - 14.9 % [facility] RDW SD 49.1(H) 35.7 - 48.1 fL [facility] NRBC abs 0.00 0.00 - 0.01 K/cumm [facility] Blood 10/08/2024 11:0 7 AM CANOPY INSPECTOR 10/08/2024 4:55 PM CANOPY INSPECTOR [facility] Rachel Robles MD LAB BLOOD ORDERA BLES Final Result [facility]AD [address] [address] Department of Laboratories [place] [id number] * Colonoscopy (06/14/2024 9:18 AM CDT) Anatomical Region Laterality Modality Other Narrative Procedure Note Richard Sims MD - 06/14/2024 9:18 AM CDT [facility] Patient Name: Giovanny Yeager Procedure Date: 06/14/2024 9:18 AM Date of : 1965 Admit Type: Outpatient Age: 59 Gender: Female Attending MD: Richard Sims M.D. Room: [facility] ENDOSCOPY ROOM 02 Note Status: Finalized Procedure: [...] The scope was passed under direct vision.The [id number] Colonoscope was introducedthrough the anus and advanced [...] On: 06/14/2024 9:18 AM Recognized by the [place] [employer] Gastrointestinal [employer] for promoting quality [...] age 40, based on guidelines of the [place] [employer] (ACR Practice Parameter for the Performance of Screening and Diagnostic Mammography) and [place] [employer]. For women [...] breast. There has been no suspicious change. Audrey Hollis MD IMG MAMMO PROCEDURES Fin al Result * Hepatitis C antibody Blood (11/07/2023 11:14 AM CANOPY INSPECTOR) Hep C Ab Nonreactive Nonreactive BRAD MICHELE [...] on 2019. Blood 11/07/2023 11:1 4 AM CANOPY INSPECTOR 11/07/2023 3:59 PM CANOPY INSPECTOR Elva Langford MD LAB MICROBIOLOGY - [facility] ORDERABLES Edited Result - Final [address] [facility] [place] [address] from Last 3 Months or Most Recently Relevant to Health Maintenance Insurance [employer] [facility] HMO/PPO Address: [address] [address] [place] [id number] [facility] HMO/PPO Address: [address] [place] [address] Advance Directives For more information, please contact: [phone] * Full Code (Latest Code Status on File) Date Activated Date Inactivated Comments 06/14/2024 7:53 AM 06/14/2024 2:45 PM * Full Code Date Activated Date Inactivated Comments 03/17/2024 6:18 PM 03/20/2024 3:11 PM * Full Code Date Activated Date Inactivated Comments 07/09/2023 7:32 PM 07/11/2023 8:12 PM * Full Code Date Activated Date Inactivated Comments 06/23/2022 7:10 AM 06/29/2022 9:23 PM Care Teams Tube Handler Relationship Specialty Start Date End Date Kayode Cerda NP [address] [place] [address] PCP - General Family Medicine 04/30/24 Shiv Adam MD Consulting Physician Cardiology 06/09/19 Arnold Zhang MD [address] [place] [address] Consulting Physician Neurosurgery 06/29/22 Elva Langford MD [address] [facility] [address] [place] [address] Consulting Physician Gastroenterology 05/21/23 Richard Sims MD [address] [facility] [id number] [place] [address] Surgeon Colon and Rectal Surgery 06/10/23
--- OUTSIDE RECORDS SUMMARY | 2025-01-05 06:16 | XMS_ITS | Clinical Summary ---
Author Organization [facility] [employer] Address [address] [place] [address] Care Team Providers Care Glass Silverer Name Role Phone Audrey Hollis MD Primary Care Provider [phone] Source Comments [facility] [employer],non-owned Affiliates and Associated Physician Practices is amultiple site organization consisting of ambulatory clinics and hospital sitesin [place], [place], [place] and [place]. This disclosure is being madepursuant to the Care Everywhere program and may not contain all information available regarding this patient. Last updated 18.[facility] [employer] Allergies Active Allergy Reactions Criticality Noted Date Comments Adhesive Sensitivity Rash High 10/14/2019 Adalimumab Swelling 04/01/2022 Injection site swelling Prednisone Palpitations Medium 11/29/2020 tachycardia Medications * Be aware that medications may not be up to date on this document. Alwaysverify current medications with the patient. nebivolol (BYSTOLIC) 10 MG tablet Take 5 mg by mouth once daily Active gabapentin (NEURONTIN) 300 MG capsule Take 900 mg by mouth 2 times daily 3 tabs BID Active zolpidem (AMBIEN) 10 MG tablet Take 10 mg by mouth nightly as needed for Insomnia Active Polyethylene Glycol 3350 (MIRALAX PO) Active magnesium oxide (MAG-OX) 400 MG tablet Take 400 mg by mouth 2 times daily Active flecainide (TAMBOCOR) 100 MG tablet Take 100 mg by mouth once daily Active linaCLOtide (LINZESS) 145 MCG capsule Take 290 mcg by mouth daily before breakfast Take on an empty stomach at least 30 minutes prior to first meal of the day. Active aspirin (ASPIRIN) 81 MG chew tablet Take 1 tablet by mouth once daily 9 Active Additional Information Patient not taking.Reported on 01/08/2022 vitamin D, ergocalciferol, (DRISDOL) 1.25 MG (61539 UT) capsuleIndicati ons:Low vitamin D level Take 1 capsule by mouth every 7 days 12 capsule 0 Active cyclobenzaprine (FLEXERIL) 10 MG tablet 10 mg as needed Acti ve hydroCHLOROthia zide (HYDRODIURIL) 12.5 MG Take 12.5 mg by mouth once daily 0 Active metoprolol succinate XL 24hr (TOPROL XL) 100 MG tablet Take 50 mg by mouth 2 times daily 0 Active polyethylene glycol 3350 (MIRALAX) 17 GM/SCOOP powder Take by mouth every 24 hours Active hydroxychloroqu ine (PLAQUENIL) 200 MG tablet Take 1 (one) tablet by mouth 2 times daily 60 tablet 2 2 Active Additional Information Patient not taking.Reported on 02/06/2022 amitriptyline (ELAVIL) 25 MG tabletIndicatio ns:Small fiber neuropathy Take 1 (one) tablet by mouth every evening 90 tablet 4 2 Active pregabalin (LYRICA) 150 MG capsule TAKE 1 CAPSULE BY MOUTH TWICE A DAY 2 Active methotrexate (RHEUMATREX) 2.5 MG tabletIndicatio ns:Inflammatory arthritis TAKE 8 (EIGHT) TABLETS BY MOUTH EVERY 7 DAYS 96 tablet 2 Active methylPREDNISol one (MEDROL DOSEPAK) 4 MG tablet Take by mouth as directed Take as directed by mouth per package instructions. 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) 12/06/2023 Overview (12/06/2023): 12/05/23 Fibroscan CAP 291, LSM 5.3 kPa Inflammatory arthritis 02/06/2022 Seronegative rheumatoid arthritis 02/06/2022 Appendicitis 01/08/2022 Blood in urine 01/08/2022 Backache 01/08/2022 Compression fracture 01/08/2022 Compression fracture of thoracic vertebra 2021 Degeneration of cervical intervertebral disc Displacement of lumbar inter vertebral disc without myelopathy 01/08/2022 Dysuria 01/08/2022 Family history of hypertension 01/08/2022 Family history of other specified conditions Herpes zoster 01/08/2022 Increased frequency of urination 01/08/2022 Injury of bladder 01/08/2022 Lumbar radiculopathy 01/08/2022 Menopausal syndrome 01/08/2022 Neck pain 01/08/2022 Night sweats 01/08/2022 Pneumatouria 01/08/2022 Urinary tract infectious disease 01/08/2022 Vaginitis 01/08/2022 Mass of chest wall 06/14/2020 Tachycardia 06/13/2020 Cerebrovascular accident (CVA) 12/23/2018 PVCs (premature ventricular contractions) 2018 Shortness of breath 12/18/2018 Abnormal electrocardiography 03/09/2015 Carpal tunnel syndrome 03/09/2015 Intermittent palpitations 03/09/2015 Primary hypertension 03/09/2015 Small fiber neuropathy Muscle cramp Neuropathy Resolved Problems Problem Noted Date Diagnosed Date Resolved Date Constipation 01/08/2022 02/05/2022 Encounters Date Type Department Care Team Description 12/29/2024 Travel from Last 3 Months Family History Medical History Relation Name Comments Heart Failure Father High Cholesterol Father Hypertension Father Cancer - Breast Mother Cancer - Other Mother Cancer - Breast Sister 1 Cancer - Breast Sister 2 Depression Neg Hx Seizures Neg Hx Relation Name Status Comments Father Mother Sister 1 Sister 2 Social History Tobacco Use Types Packs/Day Years Used Date Smoking Tobacco: Never Smokeless Tobacco: Never Tobacco Cessation:Counseling Given: No Alcohol Use Standard Drinks/Week Comments Yes 0 (1 standard drink = 0.6 oz pur e alcohol) soical Comments No Sex and Gender Information Value Date Recorded Sex Assigned at Not on file Legal Sex Female 2:12 PM CDT Gender Identity Not on file Sexual Orientation Not on file Last Filed Vital Signs Vital Sign Reading Time Taken Comments Blood Pressure 102/60 02/06/2022 3:31 PM CDT Pulse 66 02/06/2022 3:31 PM CDT Temperature 36.6 C (97.9 F) 02/06/2022 3:31 PM CDT Respiratory Rate 20 02/06/2022 3:31 PM CDT Oxygen Saturation 99% 02/06/2022 3:31 PM CDT Inhaled Oxygen Concentration - - Weight 75.8 kg (167 lb) 02/06/2022 3:31 PM CDT Height 160 cm (5' 3 ) 02/06/2022 3:31 PM CDT Body Mass Index 29.58 02/06/2022 3:31 PM CDT Plan of Treatment Upcoming Encounters Date Type Department Care Team (Late st Contact Info) Description 01/07/2025 10:00 AM CDT Procedure visit [facility] [place] [id number] Health Maintenance Due Date Last Done Comments COLOGUARD (AGES 45-75) - COL ON CA SCREENING 1965 COLON MONITORING 1965 COLONOSCOPY - COLON CA SCREENING 1965 CT COLONOGRAPHY - COLON CA SCREENING 1965 Colorectal Cancer Screening 1965 FIT - COLON CA SCREENING 1965 FLEX SIG - COLON CA SCREENING 1965 MAMMOGRAM 1965 PAP SMEAR 1965 HIV SCREENING 02/28/1979 DTAP/TDAP/TD VACCINES (1 - Tdap) 02/28/1983 PNEUMOCOCCAL VACCINE 50+ (1 of 1 - PCV) 02/28/2014 ZOSTER VACCINE (1 of 2) 02/28/2014 LIPID TESTING 12/25/2023 12/24/2018 COVID-19 VACCINE (1 - 2023-2 5 season) 2024 DEPRESSION SCREENING 09/22/2024 INFLUENZA VACCINE (Season Ended) 2025 07/11/2023, 07/30/2022 Respiratory Syncytial Virus (RSV) Vaccine Pt: or over 60 yrs (1 - 1-dose 75+ series) 02/28/2039 HEPATITIS C SCREENING Completed 11/07/2023 , 11/07/2023, 06/22/2021 HEPATITIS B VACCINE Aged Out No longe r eligible based on patient's age to complete this topic HIB VACCINE Aged Out No longer eligi ble based on patient's age to complete this topic HPV VACCINE Aged Out No longer eligi ble based on patient's age to complete this topic MENINGOCOCCAL (Group B) VACCINE SHARED DECISION-MAKING Aged Out No longer eligible based on patient's age to complete this topic MENINGOCOCCAL GROUPS A/C/Y/W VACCINE Aged Out No longer eligible b ased on patient's age to complete this topic Procedures Procedure Name Priority Date/Time Associated Diagnosis Comments HEPATITIS SCREEN ACUTE Routine 06/22/2021 11:33 AM CDT Undifferentiated connective tissue disease LIPID PROFILE Routine 12/24/2018 4:05 AM CDT from Last 3 Months or Most Recently Relevant to Health Maintenance Results * HEPATITIS SCREEN ACUTE (06/22/2021 11:33 AM CDT) Hepatitis A Virus Antibody IgM Negative Negative [facility] ACCOUNT BILL Hepatitis B Virus Surface Antigen Negative Negative [facility] ACCOUNT BILL Hepatitis B Core Virus Antibody IgM Negative Negative [facility] ACCOUNT BILL Hepatitis C Antibody <0.1 0.0 - 0.9 s/co ratio [facility] ACCOUNT BILL Comment: Negative: < 0.8 Indeterminate: 0.8 - 0.9 Positive: > 0.9 . The CDC recommends that a positive HCV antibody result be followed up with a HCV Nucleic Acid Amplification test (173059). FASTING Blood BLOOD SPECIMEN / Unknown 06/22/2021 11:33 AM CDT 06/22/2021 Narrative Resulting Agency Comment Lab Testing performed at: [facility] [address] [id number] Amber Connors MD LAB - CHEMISTRY ORDERABLES Final Result [facility] ACCOUNT BILL [address] [place] [address] * LIPID PROFILE (12/24/2018 4:05 AM CDT) Cholesterol Total 170 <200 mg/dL 12/24/2018 5:06 AM CDT [facility] HDL 61 >40 mg/dL 12/24/2018 5:06 AM CDT [facility] Comment: ATP III Classification of HDL Cholesterol: <40 mg/dL: Considered a major risk factor. >60 mg/dL: Considered a negative risk factor. LDL Calculated 94 <100 mg/dL 12/24/2018 5:06 AM [facility] Comment: ATP III Classification of LDL Cholesterol: <100 mg/dL: Optimal 100 - 129 mg/dL: Near Optimal/Above Optimal 130 - 159 mg/dL: Borderline High 160 - 189 mg/dL: High >190 mg/dL: Very High Triglycerides 76 <150 mg/dL 12/24/2018 5:06 AM [facility] Comment: ATP III Classification of Triglycerides: <150 mg/dL: Normal 150 - 199 mg/dL: Borderline High 200 - 400 mg/dL: High >500 mg/dL: Very High Blood BLOOD SPECIMEN / Unknown Lab Venipuncture / Unknown 12/24/2018 4:05 AM CDT 12/24/2018 4:32 AM CDT Latanya Rai MD LAB - CHEMISTRY ORDERABLES Final Result Performing Organization Address City/State/[facility] Co de Phone Number [address] [phone] from Last 3 Months or Most Recently Relevant to Health Maintenance Insurance [facility] Advance Directives * Full Code (Latest Code Status on File) Date Activated Date Inactivated Comments 12/23/2018 11:15 PM 12/25/2018 3:07 PM Care Teams Glass Silverer Relationship Specialty Start Date End Date Audrey Hollis MD [address] [place] [address] [place] [address] PCP - General 01/28/18
--- OUTSIDE RECORDS SUMMARY | 2025-01-05 06:17 | XMS_ITS | Clinical Summary ---
Author Organization [facility] Address [address] [place] [address] Care Team Providers Care Roofer Name Role Phone Audrey Hollis MD Primary Care Provider [phone] Allergies Active Allergy Reactions Criticality Noted Date Comments Adalimumab Swelling Medium 04/01/2022 Injection site swelling Tape Swelling,Rash High 10/14/2019 Wound Dressing Adhesive Contact Dermatitis High 06/22 Patient states it is a sever allergy Medications polyethylene glycol 17 GM/SCOOP powder Take 1 Scoop by mouth daily as needed. Active LINACLOTIDE 290 MCG capsule Take 1 capsule (290 mcg total) by mouth. 1 Active cyclobenzaprine (FLEXERIL) 10 MG tablet Take 1 tablet (10 mg total) by mouth as needed. FOR MUSCLE SPASMS 2 Active famotidine (PEPCID) 40 MG tablet famotidine 40 mg tablet TAKE 1 TABLET BY MOUTH EVERY DAY FOR 30 DAYS Active pregabalin (LYRICA) 150 MG capsule Take 1 capsule (150 mg total) by mouth 2 (two) times daily. 2 Active metoprolol succinate ER (TOPROL-XL) 100 MG 24 hr tablet Take 1 tablet (100 mg total) by mouth 2 (two) times daily. 180 tablet 4 Active amitriptyline (ELAVIL) 50 MG tablet Take 1 tablet (50 mg total) by mouth nightly at bedtime. 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 Macular scar of left eye 09/26/2022 Overview (10/10/2023): Last Assessment & Plan: Small focal scars left eye (OS). No evidence of heme or elevation. Monitor. Nevus of choroid of left eye 09/26/2022 Overview (10/10/2023): Last Assessment & Plan: Photos obtained, flat with overlying drusen SN. Will closely monitor. Muscle cramp 07/26/2022 Seizures ([facility]) 07/17/2022 Small fiber neuropathy 07/17/2022 Intermittent palpitations 06/29/2021 Hypertensive disorder 06/14/2020 Heart palpitations 06/14/2020 Mass of chest wall 06/14/2020 Tachycardia 06/13/2020 Chest pain 11/19/2019 Cerebrovascular accident (CVA) ([facility]) 12/23/2018 PVCs (premature ventricular contractions) 2018 Shortness of breath 12/18/2018 Neuropathy 01/21/2018 Thyroid nodule 12/29/2017 Abnormal electrocardiography 03/09/2015 Encounters Date Type Department Care Team Description 11/26/2024 12:00 PM SENIOR POLICY ANALYST Office Visit [facility] on [address] [address] Ander Arnold MD Follow Up; Tachycardia; Palpitations 11/26/2024 Travel from Last 3 Months Family History Medical History Relation Comments Hypertension Father SD Father Dementia Mother Diabetes Mother Hypertension Mother maligant tumor of maxillary sinus Mother Ovarian Cancer Other paternal cousins Breast Cancer Paternal Aunt Breast Cancer Sister Relation Status Comments Father (Age 60) Mother (Age 76) Other Paternal Aunt Sister Social History Tobacco Use Types Packs/Day Years Used Date Smoking Tobacco: Never Smokeless Tobacco: Never Tobacco Cessation:Counseling Given: Not Answered Alcohol Use Standard Drinks/Week Comments Not Currently 0 (1 standard drink = 0.6 oz pur e alcohol) Comments No Sex and Gender Information Value Date Recorded Sex Assigned at Female 11/26/2024 11:33 AM SENIOR POLICY ANALYST Legal Sex Female 7:39 PM CDT Gender Identity Not on file Sexual Orientation Not on file Last Filed Vital Signs Vital Sign Reading Time Taken Comments Blood Pressure 108/66 11/26/2024 11:48 AM SENIOR POLICY ANALYST Pulse 66 11/26/2024 11:48 AM SENIOR POLICY ANALYST Temperature 36.4 C (97.5 F) 05/24/2022 8:37 AM CDT Respiratory Rate 16 03/06/2022 8:02 AM CDT Oxygen Saturation 96% 11/26/2024 11:48 AM SENIOR POLICY ANALYST Inhaled Oxygen Concentration - - Weight 75.8 kg (167 lb) 11/26/2024 11:48 AM SENIOR POLICY ANALYST Height 165.1 cm (5' 5 ) 11/26/2024 11:48 AM SENIOR POLICY ANALYST Body Mass Index 27.79 11/26/2024 11:48 AM SENIOR POLICY ANALYST Plan of Treatment Upcoming Encounters Date Type Department Care Team (Late st Contact Info) Description 11/25/2025 12:45 PM SENIOR POLICY ANALYST Office Visit [facility] [address] [place], [place] [id number] Ander Arnold MD [facility]. [address] [place], [place] [id number] Health Maintenance Due Date Last Done Comments Annual Physical 02/28/1967 DTaP, Tdap and Td Vaccines ( 1 - Tdap) 02/28/1983 Zoster Vaccines (1 of 2) 02/28/2014 RSV Immunization or 60+ Years (1 - Risk 60-74 years 1-dose series) 2024 COVID-19 Vaccine (4 - 2023-2 5 season) 2024 06/28/2021, 11/10/2020, 10/16/2020 Mammogram Screening 01/01/2026 01/02/2024 Hepatitis C Completed 06/22/2021 Meningococcal B Vaccine Aged Out No l onger eligible based on patient's age to complete this topic Meningococcal Vaccine Aged Out No juan jose aurea eligible based on patient's age to complete this topic Pneumococcal Vaccine: Pediatrics (0 to 5 Years) and At-Risk Patients (6 to 49 Years) Aged Out No longer eligible b ased on patient's age to complete this topic RSV Immunizations Under 20 Months Aged Out No longer eligible b ased on patient's age to complete this topic Procedures Procedure Name Priority Date/Time Associated Diagnosis Comments ELECTROCARDIOGRAM (NON MIDMARK ACQUIRED) Routine 11/26/2024 11:52 AM SENIOR POLICY ANALYST Tachycardia from Last 3 Months Results * ELECTROCARDIOGRAM (11/26/2024 11:52 AM SENIOR POLICY ANALYST) 11/26/2024 11:5 2 AM SENIOR POLICY ANALYST Narrative [facility] - 12/04/2024 1:13 PM CDT [facility] Test Date: 2024-11-26 Pat Name: GIOVANNY ACE Department: 112 Room: Gender: Female Solar Maintenance Technician: : 1965 Requested By: ANDER ARNOLD Order Number: [id number] Reading LIDA Arnold Measurements Intervals Wilson Rate: 81 P: 28 LA: 179 QRS: -3 QRSD: 94 T: 33 QT: 374 QTc: 435 Interpretive Statements SINUS RHYTHM VOLTAGE CRITERIA FOR LVH Compared to ECG dated 11/07/23, findings are similar. Procedure Note Ander Arnold MD - 12/04/2024 [facility] Test Date: 2024-11-26 Pat Name: GIOVANNY JOVELON Department: 112 Room: Gender: Female Solar Maintenance Technician: : 1965 Requested By: ANDER ARNOLD Order Number: [id number] Reading MDMarion Arnold Measurements Intervals Wilson Rate: 81 P: 28 LA: 179 QRS: -3 QRSD: 94 T: 33 QT: 374 QTc: 435 Interpretive Statements SINUS RHYTHM VOLTAGE CRITERIA FOR LVH Compared to ECG dated 11/07/23, findings are similar. Ander Arnold MD PROCEDURES-ORDERABLE NO CHARGE F inal Result [facility] from Last 3 Months Insurance GENERIC - COMMERCIAL Advance Directives * Full Code (Latest Code Status on File) Date Activated Date Inactivated Comments 08/10/2020 5:37 PM 08/10/2020 10:59 PM Care Teams Roofer Relationship Specialty Start Date End Date Audrey Hollis MD [address] [place] [address] PCP - General FAMILY PRACTICE 06/05/20
--- OUTSIDE RECORDS SUMMARY | 2025-01-05 06:17 | XMS_ITS | CONTINUITY OF CARE DOCUMENT ---
Author Name jose luis amaya Address Unknown Organization [facility] Address [id number] [place] [address] [address] [place] [address] Phone [phone] Care Team Providers Care Chronic Specialist Name Role Phone Jose Perez MD Unavailable HONEY CROFT MD Unavailable [phone] HONEY CROFT MD Unavailable PROBLEMS Condition Status Date Provider Notes Family History of Sudden Cardiac : active ? Jose Perez MD Palpitations active Jose Perez MD Carpal tunnel syndrome active Jose Perez MD HTN essential active Jose Perez MD Family History of Hypertension: active ? Seven Perez MD Abnormal electrocardiogram--prolonged QT active 03/09 Jose Perez MD PVC's active Mamadou Small Shortness of breath active Mamadou Small TIA, hx of active Michael Chandler Chest pain active Alirio Busby ENCOUNTERS Date Type Provider Location Encounter Diag nosis - In-person encounter Office Visit Shiv Adam MD [facility] - In-person encounter Office Visit Shiv Adam MD [facility] Chest pain - In-person encounter Office Visit Shiv Adam MD [facility] - In-person encounter Office Visit Shiv Adam MD [facility] - In-person encounter Office Visit Shiv Adam MD [facility] TIA, hx of - In-person encounter Office Visit Shiv Adam MD [facility] - In-person encounter Office Visit Shiv Adam MD [facility] PVC'sShortness of breath - In-person encounter Office Visit Jose Perez MD [facility] - In-person encounter Office Visit Jose Perez MD [facility] - In-person encounter Office Visit Jose Perez MD [facility] - In-person encounter Office Visit Lencho King MD [facility] - In-person encounter Office Visit Jose Perez MD [facility] - In-person encounter Office Visit Jose Perez MD [facility] - In-person encounter Office Visit Jose Perez MD [facility] Family History of Sudden Cardiac :PalpitationsCarpa l tunnel syndromeHTN essentialFamily History of Hypertension:Abnormal electrocardiogram--prol onged QT VITAL SIGNS Date Observation Value Provider Body Mass Index (Ratio) 27.99 kg/m2 Darling Busby pulse rate 69 /min Katerina winchester oxygen saturation, oximetry 95 % Katerina Aguillon blood pressure, diastolic 74 mm[Hg] Rahul Aguillon blood pressure, systolic 113 mm[Hg] Karla Aguillon respiratory rate E&M 16 /min Katerina Aguillon weight E&M 158 [lb_av] Katerina winchester blood pressure, cuff size regular Rahul Aguillon height E&M 63 [in_i] Katerina winchester temperature site temporal Audra Tank sley temperature E&M 97.3 [degF] Audra Tanks erik Body Mass Index (Ratio) 27.81 kg/m2 Darling Busby blood pressure, cuff size regular Cy ntaimee Aguillon blood pressure, diastolic 80 mm[Hg] Cy ntcarliea Aguillon blood pressure, systolic 130 mm[Hg] Karla atiya Aguillon oxygen saturation, oximetry 97 % Katerina Aguillon respiratory rate E&M 16 /min Katerinaatiya Aguillon pulse rate 102 /min Katerina winchester weight E&M 157 [lb_av] Katerina winchester height E&M 63 [in_i] Katerina winchester Body Mass Index (Ratio) 28.45 kg/m2 Max Adam MD blood pressure, diastolic 79 mm[Hg] Catracho De La Paz blood pressure, systolic 142 mm[Hg] Harini De La Paz oxygen saturation, oximetry 98 % Melinda De La Paz respiratory rate E&M 18 /min Alta De La Paz pulse rate 83 /min Melinda woodard weight E&M 160.6 [lb_av] Melinda ko height E&M 63 [in_i] Melinda woodard Body Mass Index (Ratio) 28.16 kg/m2 Darling Busby blood pressure, diastolic, standing 83 mm [Hg] Alirio Busby blood pressure, systolic, standing 122 mm [Hg] Alirio Busby blood pressure, cuff size regular Cy daisha Aguillon blood pressure, diastolic 84 mm[Hg] Patricia Busby blood pressure, systolic 131 mm[Hg] Branden Feliz oxygen saturation, oximetry 97 % Katerina Aguillon respiratory rate E&M 16 /min Katerina Aguillon pulse rate 103 /min Katerina Ricardo l weight E&M 159 [lb_av] Katerina Robertbel l height E&M 63 [in_i] Katerina Robertbel l Body Mass Index (Ratio) 27.99 kg/m2 Eloy olalo Lambros blood pressure, diastolic 80 mm[Hg] Ki lleen Milan blood pressure, systolic 120 mm[Hg] Marco Antonio montelongo Milan oxygen saturation, oximetry 98 % [place] respiratory rate E&M 16 /min [place] pulse rate 77 /min Rudolph Milan weight E&M 158 [lb_av] Rudolph Milan height E&M 63 [in_i] [place] Body Mass Index (Ratio) 28.16 kg/m2 Eloy rica Lambros blood pressure, diastolic 80 mm[Hg] Ma rsha O'Wei blood pressure, systolic 140 mm[Hg] Mar [facility] O'Wei oxygen saturation, oximetry 97 % Mis O'Wei respiratory rate E&M 16 /min Ims O'Wei pulse rate 75 /min Mis O'Wei weight E&M 159 [lb_av] Mis O'Wei height E&M 63 [in_i] Mis O'Wei Body Mass Index (Ratio) 28.16 kg/m2 Servando pineda Geovanny blood pressure, diastolic 84 mm[Hg] Da daniel Desi blood pressure, systolic 132 mm[Hg] Dac ia Desi oxygen saturation, oximetry 98 % Beverly Desi respiratory rate E&M 16 /min Beverly V oss pulse rate 91 /min Beverly Desi weight E&M 159 [lb_av] Beverly Desi height E&M 63 [in_i] Beverly Desi Body Mass Index (Ratio) 29.05 kg/m2 Seven Perez MD blood pressure, diastolic 69 mm[Hg] Catracho De La Paz blood pressure, systolic 115 mm[Hg] Harini De La Paz oxygen saturation, oximetry 99 % Melinda De La Paz respiratory rate E&M 18 /min Alta De La Paz pulse rate 81 /min Melinda woodard weight E&M 164 [lb_av] Melinda woodard height E&M 63 [in_i] Melinda [place] [facility] Body Mass Index (Ratio) 28.52 kg/m2 Seven Perez MD blood pressure, diastolic 82 mm[Hg] Godfrey chamorro [place] blood pressure, systolic 122 mm[Hg] Marco Antonio montelongo [place] oxygen saturation, oximetry 98 % [facility] E&M 16 /min [facility] 86 [facility] E&M 161 [lb_av] Rudolph Milan height E&M 63 [in_i] [place] Body Mass Index (Ratio) 28.34 kg/m2 Seven Perez MD blood pressure, cuff size regular Cy daisha Aguillon blood pressure, diastolic 70 mm[Hg] Cy daisha Aguillon blood pressure, systolic 120 mm[Hg] Karla Aguillon oxygen saturation, oximetry 98 % Katerina Aguillon respiratory rate E&M 18 /min Katerina Aguillon pulse rate 73 /min Katerina Ricardo l weight E&M 160 [lb_av] Katerina Jakobbel l height E&M 63 [in_i] Katerina Campbel l Body Mass Index (Ratio) 27.10 kg/m2 Dwight King MD blood pressure, cuff size regular Ke rri Olamideemerita blood pressure, diastolic 88 mm[Hg] Ke rri Olamideemerita blood pressure, systolic 157 mm[Hg] Lukasz Quiñonezemerita oxygen saturation, oximetry 96 % Roxann Quiñonezemerita respiratory rate E&M 20 /min Roxann Eugene nickirosendastephanie pulse rate 86 /min Roxann Antunez madhaver weight E&M 153 [lb_av] Roxann Antunez madhav height E&M 63 [in_i] Roxann Cainmaegantemochristel [facility] Body Mass Index (Ratio) 26.89 kg/m2 Seven Perez MD blood pressure, diastolic 70 mm[Hg] Catracho De La Paz blood pressure, systolic 114 mm[Hg] Harini De La Paz oxygen saturation, oximetry 97 % Melinda De La Paz respiratory rate E&M 18 /min Alta De La Paz pulse rate 67 /min Melinda woodard weight E&M 151.8 [lb_av] Melinda ko height E&M 63 [in_i] Melinda woodard Body Mass Index (Ratio) 25.61 kg/m2 Seven Perez MD blood pressure, resting Yes Kecia De La Paz blood pressure, diastolic 78 mm[Hg] Catracho De La Paz blood pressure, systolic 138 mm[Hg] Harini De La Paz oxygen saturation, oximetry 98 % Melinda De La Paz respiratory rate E&M 18 /min Alta De La Paz pulse rate 70 /min Melinda woodard weight E&M 144.6 [lb_av] Melinda ko height E&M 63 [in_i] Melinda hendersonon Body Mass Index (Ratio) 27.81 kg/m2 Yumiko gallo Villatoro blood pressure, diastolic 91 mm[Hg] Me rolle Villatoro blood pressure, systolic 147 mm[Hg] Arlene swift Villatoro pulse rate 94 /min Honey Villatoro oxygen saturation, oximetry 98 % Honey Villatoro respiratory rate E&M 14 /min Honey Villatoro weight E&M 157 [lb_av] Honey Villatoro height E&M 63 [in_i] Honey Villatoro ALLERGIES No Known Drug Allergies HISTORY OF MEDICATION USE Medication Status Instructions Dates Provider Indications Com ments BYSTOLIC 5 MG ORAL TABLET active half a TAB. DAILY AT NIGHT Alirio Busby ASPIR-LOW 81 MG ORAL TABLET DELAYED RELEASE active take 1 tab daily Katerina Aguillon AMBIEN 10 MG ORAL TABLET active take 1 at bedtime Katerina Aguillon AMIODARONE HCL 200 MG ORAL TABLET completed Take 1 tab three times a day - Melinda De La Paz WARFARIN SODIUM 5 MG ORAL TABLET completed one tavblet daily , start week before the procedure - Katerina Aguillon FLECAINIDE ACETATE 100 MG ORAL TABLET completed one tab twice daily - Katerina Aguillon MAGNESIUM OXIDE 400 MG ORAL TABLET active ONE TAB TWICE A DAY Mamadou Small AMITRIPTYLINE HCL 10 MG ORAL TABLET completed ONE TAB. DAILY - Katerina Aguillon GABAPENTIN 300 MG ORAL CAPSULE completed Takes three capsules in AM and three capsules in PM - Rudolph Milan MIRALAX ORAL POWDER active as needed Supriya De La Paz BYSTOLIC 5 MG ORAL TABLET completed ONE TAB. DAILY - Katerina Aguillon ZOLPIDEM TARTRATE 10 MG ORAL TABLET completed once daily as needed - Katerina Aguillon HYDROCODONE-ACETAMI NOPHEN 10-325 MG ORAL TABLET completed daily as needed - Rudolph Milan CYCLOBENZAPRINE HCL 10 MG ORAL TABLET completed daily as needed - Rudolph Milan ALPRAZOLAM 0.5 MG ORAL TABLET completed three times daily as needed - Rudolph Milan SOCIAL HISTORY Date Observation Value Provider social history reviewed E&M revi ewed - no changes required Alirio Busby smoking status Never smoker Katerina Dustin cobos social history reviewed E&M revi ewed - no changes required Alirio Busby smoking status Never smoker Katerina Dustin cobos social history reviewed E&M revi ewed - no changes required Alirio Busby smoking status Never smoker Melinda Palacios aung social history reviewed E&M revi ewed - no changes required Alirio Busby smoking status Never smoker Katerina Dustin cobos social history E&M Patient has n ever smoked. Smoking History: Meme lamb has never smoked. Michael Chandler social history reviewed E&M revi ewed - no changes required Michael Chandler smoking status Never smoker Rudolph sunshine smoking status Never smoker Michael whitney social history E&M Patient has n ever smoked. Smoking History: Meme lamb has never smoked. Michael Chandler social history reviewed E&M revi ewed - no changes required Michael Chandler number of grandchildren Shiv Small social history reviewed E&M revi ewed - no changes required Mamadou Small social history E&M Patient has n ever smoked. Smoking History: Meme lamb has never smoked. Mamadou Small smoking status Never smoker Beverly Weeks social history E&M Patient has n ever smoked. Smoking History: Meme lamb has never smoked. Jose Perez MD social history reviewed E&M revi ewed - no changes required Jose Perez MD smoking status Never smoker Melinda Palacios aung social history E&M Patient has n ever smoked. Smoking History: Meme lamb has never smoked. Jose Perez MD social history reviewed E&M revi ewed - no changes required Jose Perez MD smoking status Never smoker Rudolph Mitchell bita number of grandchildren Jose Perez MD U bro Perez MD smoking status Never smoker Katerina cobos number of grandchildren Lencho King MD social history reviewed E&M revi ewed - no changes required Lencho King MD smoking status Never smoker Roxann forte social history reviewed E&M revi ewed - no changes required Jose Perez MD smoking status Never smoker Melinda Lam number of grandchildren Jose Perez MD U bro Perez MD social history reviewed E&M revi ewed - no changes required Jose Perez MD smoking status Never smoker Melindakyaw Lam social history reviewed E&M revi ewed - no changes required Jose Perez MD social history E&M Patient has n ever smoked. Smoking History: Meme lamb has never smoked. Jose Perez MD smoking status Never smoker Jose Perez MD FAMILY HISTORY Family Member Condition Mother Family History of Hy pertension: Mother Family History of Di abetes: Father Family History of Davis dden Cardiac : INSURANCE PROVIDERS Payer name Policy type / Coverage type [employer] party ID [facility] [id number] ADVANCE DIRECTIVES Name Date DISCUSSED - NO DECISION MADE TREATMENT PLAN Date Name Performer Cardiology: H er updated medication list for this problem includes: Bystolic 5 Mg Oral Tablet (Nebivolol hcl) ..... One tab. daily at night Aspir-low 81 Mg Oral Tablet Delayed Release (Aspirin) ..... Take 1 tab daily [facility] Cardiology: H er updated medication list for this problem includes: Bystolic 5 Mg Oral Tablet (Nebivolol hcl) ..... One tab. daily at night Aspir-low 81 Mg Oral Tablet Delayed Release (Aspirin) ..... Take 1 tab daily [facility] Cardiology: H er updated medication list for this problem includes: Bystolic 5 Mg Oral Tablet (Nebivolol hcl) ..... One tab. daily at night Aspir-low 81 Mg Oral Tablet Delayed Release (Aspirin) ..... Take 1 tab daily [facility] Cardiology:if contin ues to have palpitations, would consider ILR implant [facility] Electrophysiology follow up [facility] Electrophysiology fo llow up : H er updated medication list for this problem includes: Aspir-low 81 Mg Oral Tablet Delayed Release (Aspirin) ..... Take 1 tab daily [facility] Electrophysiology fo llow up :Holter on 10/11/2019: R hythm: Sinus Rhythm. S VE: 0.1%, 1 single SVE. V E: 1.3%, 1257 single VEs, 61 paired VEs, 9 bigeminal cycles, and 53 trigeminal cycles. Average heart rate: 80BPM M aximum heart rate: 130BPM M inimum heart rate: 63BPM [facility] Electrophysiology fo llow up :Will get stress echo i f abnormal pt will need cardiac cath by Dr. Perez [facility] Electrophysiology fo llow up : B P today: 130/80 P rior BP: 142/79 (07/16/2019) Her updated medication list for this problem includes: Aspir-low 81 Mg Oral Tablet Delayed Release (Aspirin) ..... Take 1 tab daily [facility] Electrophysiology: B P today: 142/79 P rior BP: 122/83 (06/18/2019) [facility] Electrophysiology: H er updated medication list for this problem includes: Aspir-low 81 Mg Oral Tablet Delayed Release (Aspirin) ..... Take 1 tab daily [facility] Electrophysiology:see above [facility] Electrophysiology:Wi campos evaluate holter from today T he following medications were removed from the medication list: Amiodarone Hcl 200 Mg Oral Tablet (Amiodarone hcl) ..... Take 1 tab three times a day Her updated medication list for this problem includes: Aspir-low 81 Mg Oral Tablet Delayed Release (Aspirin) ..... Take 1 tab daily [facility] Electrophysiology ho spital follow up : B P today: 131/84 P rior BP: 120/80 (04/23/2019) The following medications were removed from the medication list: Bystolic 5 Mg Oral Tablet (Nebivolol hcl) ..... One tab. daily Her updated medication list for this problem includes: Aspir-low 81 Mg Oral Tablet Delayed Release (Aspirin) ..... Take 1 tab daily [facility] Electrophysiology ho spital follow up : O rders: 9 9213 LTD. Complex (CPT-23124) H olter Monitor 24 Hr (CPT-76751) [facility] Electrophysiology ho spital follow up :schedule holter monitor O rders: E KG (CPT-30481) 9 9213 LTD. Complex (CPT-36957) H olter Monitor 24 Hr (CPT-40620) The following medications were removed from the medication list: Warfarin Sodium 5 Mg Oral Tablet (Warfarin sodium) ..... One tavblet daily , start week before the procedure Flecainide Acetate 100 Mg Oral Tablet (Flecainide acetate) ..... One tab twice daily Bystolic 5 Mg Oral Tablet (Nebivolol hcl) ..... One tab. daily Her updated medication list for this problem includes: Aspir-low 81 Mg Oral Tablet Delayed Release (Aspirin) ..... Take 1 tab daily Amiodarone Hcl 200 Mg Oral Tablet (Amiodarone hcl) ..... Take 1 tab three times a day [facility] Electrophysiology ho spital follow up :Pt will stop amiodarone after they finish their current script. Do not refill. O rders: F VC - 19387 (46700) F RC - 55116 (64042) D LCO - 10661 (40897) The following medications were removed from the medication list: Bystolic 5 Mg Oral Tablet (Nebivolol hcl) ..... One tab. daily Her updated medication list for this problem includes: Aspir-low 81 Mg Oral Tablet Delayed Release (Aspirin) ..... Take 1 tab daily Alirio Busby Electrophysiology:Will check ful l PFTs in 6 months. Michael Chandler Electrophysiology:BP today: 120/80 P rior BP: 140/80 (03/12/2019) Her updated medication list for this problem includes: Bystolic 5 Mg Oral Tablet (Nebivolol hcl) ..... One tab. daily Michael Chandler Electrophysiology:He r most recent 48-hour Holter monitor 11/2018 documented 1.3% PVC burden. Previously, she wore a 24-hour ZIO which documented 5.1% PVC burden. Will order 24 Hr Holter in 6 months. W ill schedule EP ablation in 2 months with carto and anesthia. Discussed with pt and she is agreeable. RICKEY 04/06/2019 showed: F INDINGS: 1 . The left ventricle appears to be normal size with normal wall motion. EF 60-65%. 2 . The mitral valve appears to coapt normally. There is only trace mitral valve regurgitation. 3 . The aortic valve is trileaflet and opens normally. There is no AI. 4 . There is no pericardial or pleural effusion. 5 . The left atrial appendage appears to be clean with normal pulsed wave velocities. 6 . Interatrial septum appears to have significant motion consistent with interatrial septal aneurysm. 7 . Bubble study demonstrated crossover after 6-8 beats consistent with a shunt between the lung and the heart however we will repeat the bubble study with a transthoracic to see whether the patient has immediate or late crossover. Her updated medication list for this problem includes: Flecainide Acetate 100 Mg Oral Tablet (Flecainide acetate) ..... One tab twice daily Bystolic 5 Mg Oral Tablet (Nebivolol hcl) ..... One tab. daily Michael Chandler Electrophysiology: stress test showed no electrocardiographic changes of myocardial ischemia, and she reported no chest pain or palpitations. W ill schedule EP ablation in 2 months with carto and anesthia. Discussed with pt and she is agreeable. Michael Chandler Electrophysiology:He r most recent 48-hour Holter monitor 11/2018 documented 1.3% PVC burden. Previously, she wore a 24-hour ZIO which documented 5.1% PVC burden. Will order two week telesentry monitor and RICKEY, depending on results will consider EP study. Her updated medication list for this problem includes: Flecainide Acetate 100 Mg Oral Tablet (Flecainide acetate) ..... One tab twice daily Bystolic 5 Mg Oral Tablet (Nebivolol hcl) ..... One tab. daily Orders: E KG (CPT-84274) M obile Cardiac Tele (CPT-47542) T EE - GC (*) Michael Chandler Electrophysiology: stress test showed no electrocardiographic changes of myocardial ischemia, and she reported no chest pain or palpitations. Her updated medication list for this problem includes: Bystolic 5 Mg Oral Tablet (Nebivolol hcl) ..... One tab. daily Michael Chandler Electrophysiology:BP today: 140/80 P rior BP: 132/84 (12/18/2018) Her updated medication list for this problem includes: Bystolic 5 Mg Oral Tablet (Nebivolol hcl) ..... One tab. daily Michael Chandler Electrophysiology: B P today: 132/84 P rior BP: 115/69 (11/27/2018) Her updated medication list for this problem includes: Bystolic 5 Mg Oral Tablet (Nebivolol hcl) ..... One tab. daily Mamadou Geovanny Electrophysiology: C heck PFTs as soon as possible. Orders: F VC - 40174 (59606) F RC - 23249 (97059) D LCO - 76040 (18626) Her updated medication list for this problem includes: Bystolic 5 Mg Oral Tablet (Nebivolol hcl) ..... One tab. daily Mamadou Geovanny Electrophysiology: S ee above. Her updated medication list for this problem includes: Flecainide Acetate 100 Mg Oral Tablet (Flecainide acetate) ..... One tab twice daily Bystolic 5 Mg Oral Tablet (Nebivolol hcl) ..... One tab. daily Mamadou Geovanny Electrophysiology: Bita nguyen recent 48-hour Holter monitor 11/2018 documented 1.3% PVC burden. Previously, she wore a 24-hour ZIO which documented 5.1% PVC burden. Decrease Bystolic to 5mg one tab once daily. S tart Flecainide 100mg one tab twice daily. S tart Magnesium 400mg one tab twice daily. C heck routine treadmill stress test as soon as possible. C heck CT cardiac (pre-ablation) at [facility]. Followup with me in 2-3 weeks. Will discuss whether the patient desires to proceed with EP ablation of PVCs at that time. Orders: E KG (CPT-79745) S tress Routine (CPT-69177) 9 9214 MOD Complex (CPT-22351) S chedule Followup (*) C T Cardiac with contrast (Pre-Ablation) (CPT-34961) Her updated medication list for this problem includes: Flecainide Acetate 100 Mg Oral Tablet (Flecainide acetate) ..... One tab twice daily Bystolic 5 Mg Oral Tablet (Nebivolol hcl) ..... One tab. daily Mamadou Small Cardiology Jose Perez MD Cardiology: B P today: 115/69 P rior BP: 122/82 (06/05/2018) Jose Perez MD Cardiology:will do a 48 hr holter to see the number and freq of episodes. Jose Perez MD Cardiology: B P today: 122/82 P rior BP: 120/70 (03/13/2018) Jose Perez MD Cardiology:had aroun d 8,000 PVCs in 24 hours. Will check an echo to make sure LV function has not been affected. Jose Perez MD Cardiology Follow up :Will check 48 hour monitor. I f ectopic beats remain at about the same frequency, or increase, will refer to Dr. Adam. Jose Perez MD Cardiology Follow up : B P today: 120/70 P rior BP: 157/88 (09/18/2017) Jose Perez MD Cardiology Follow up :Blood pressure is elevated at 157/88. Will increase Bystolic to 10mg once daily. Lencho King MD Cardiology Follow up :Recurrence of symptoms with headache. Will increase Bystolic to 10mg once daily. Lencho King MD Cardiology: B P today: 114/70 P rior BP: 138/78 (04/25/2017) Jose Perez MD Cardiology:Stress is much better managed. Her ZIO showed 9429 isolated VEs. Much less palps subjectively. Jose Perez MD Cardiology:Will give her a 48 hour monitor. Could be secondary to thyroid complications. Will also do echo. Jose Perez MD Cardiology: B P today: 138/78 P rior BP: 147/91 (03/09/2015) Jose Perez MD New Patient: O rders: C omplete Echo (CPT-73346) H olter Monitor 24 Hr (CPT-16496) S TR - Routine (CPT-80556) Jose Perez MD New Patient: H er updated medication list for this problem includes: Alprazolam 0.5 Mg Tabs (Alprazolam) ..... Three times daily as needed Orders: C omplete Echo (CPT-04748) H olter Monitor 24 Hr (CPT-36067) S TR - Routine (CPT-90790) Jose Perez MD New Patient:BP 147/9 1 Jose Perez MD Date Name Mobile Cardiac Tele Stress Echo Complete Echo Stress Routine DLCO - 73969 FRC - 23032 FVC - 07357 Holter Monitor 24 Hr PROTHROMBIN TIME WIT H INR Partial Thromboplast in Time, Activated PROTHROMBIN TIME WIT H INR CBC (INCLUDES DIFF/P LT) BASIC METABOLIC PANE L W/EGFR Creatinine, Serum ABLATION w/ Anesthes ia CT Cardiac with cont rast (Pre-Ablation) DLCO - 63082 FRC - 92789 FVC - 57911 Holter Monitor 24 Hr RICKEY - GC Mobile Cardiac Tele DLCO - 66466 FRC - 17619 FVC - 18446 CT Cardiac with cont rast (Pre-Ablation) Stress Routine Holter Monitor 24 Hr Complete Echo ZIO Holter ZIO Holter Complete Echo STR - Routine Holter Monitor 24 Hr Complete Echo HISTORY OF PROCEDURES Procedure Date Procedure Name Provider Procedure Notes S tatus EKG Shiv nash MD completed EKG Shiv nash MD completed EKG Shiv nash MD completed EKG Shiv nash MD completed Schedule Followup Shiv estrella MD 6 months completed EKG Shiv nash MD completed Schedule Followup Shiv estrella MD one month completed EKG Shiv nash MD completed Schedule Followup Shiv estrella MD in 2-3 weeks completed EKG Shiv nash MD completed Holter, 24 or 48 Jose Perez MD com pleted EKG Lencho King MD complet ed SNOMED-CT: 107585418447629 Current Medications Documented Lencho King MD completed SNOMED-CT: [id number] Physical Exam, Performed: Pulse Exam of Foot Jose Perez MD completed SNOMED-CT: [id number] Current Medications Documented Jose Perez MD completed PANDA Perez MD co mpleted SNOMED-CT: [id number] Physical Exam, Performed: Pulse Exam of Foot Jose Perez MD completed EKG Jose Perez MD completed SNOMED-CT: [id number] Current Medications Documented Jose Perez MD completed
--- OUTSIDE RECORDS SUMMARY | 2025-01-05 06:17 | XMS_ITS | Encounter Summary ---
Author Organization [facility] Address [address] [place] [address] Care Team Providers Care Chief Merchandising Officer Name Role Phone Audrey Hollis MD Primary Care Provider [phone] Encounter Details Date Type Department Care Team (Late Contact Info) Description 04/25/2022 MyChart Message Enc [facility] Multispecialty Care - [facility] [address] [facility], [address] [place] [address] Afia Falcon MD [address] [place] [address] Mri lspine Social History Tobacco Use Types Packs/Day Years Used Date Smoking Tobacco: Never Smokeless Tobacco: Never Alcohol Use Standard Drinks/Week Comments Not Currently 0 (1 standard drink = 0.6 oz pur e alcohol) Comments No Sex and Gender Information Value Date Recorded Sex Assigned at Female 11/26/2024 11:33 AM BUSINESS SYSTEMS ANALYST Legal Sex Female 7:39 PM CDT Gender Identity Not on file Sexual Orientation Not on file COVID-19 Exposure Response Date Recorded In the last 10 days, have yo u been in contact with someone who was confirmed or suspected to have Coronavirus/COVID-19? No / Unsure 04/22/2022 2:20 PM CDT documented as of this encounter Plan of Treatment Upcoming Encounters Date Type Department Care Team (Late Contact Info) Description 11/25/2025 12:45 PM BUSINESS SYSTEMS ANALYST Office Visit Ed [facility] n [facility] [place] [address] [place] [address] Ander Arnold MD [facility] [address] [place] [address] documented as of this encounter Visit Diagnoses Not on filedocumented in this encounter Care Teams Chief Merchandising Officer Relationship Specialty Start Date End Date Audrey Hollis MD [address] [place] [address] [place] [address] PCP - General FAMILY PRACTICE 06/05/20 documented as of this encounter
--- OUTSIDE RECORDS SUMMARY | 2025-01-05 06:17 | XMS_ITS | Encounter Summary ---
Author Organization [facility] Address [address] [place] [address] Care Team Providers Care Leacher Name Role Phone Audrey Hollis MD Primary Care Provider [phone] Encounter Details Date Type Department Care Team (Late Contact Info) Description 04/12/2021 Misc Documentation [facility] [place] [address] [place], [place] [id number] Abstract, Doc [facility] Social History Tobacco Use Types Packs/Day Years Used Date Smoking Tobacco: Never Smokeless Tobacco: Never Alcohol Use Standard Drinks/Week Comments Yes 0 (1 standard drink = 0.6 oz pur e alcohol) Comments No Sex and Gender Information Value Date Recorded Sex Assigned at Female 11/26/2024 11:33 AM CARTON INSPECTOR Legal Sex Female 7:39 PM CDT Gender [...] (Late Contact Info) Description 11/25/2025 12:45 PM CARTON INSPECTOR Office Visit [facility] [place] [address] [place], [place] [id number] Ander Arnold MD [facility]. [place] [address] [place], [place] [id number] documented as of this encounter Visit Diagnoses Not on filedocumented in this encounter Care Teams Leacher Relationship Specialty Start Date End Date Audrey Hollis MD [address] [place] [address] [place] [address] PCP - General FAMILY PRACTICE 06/05/20 documented as of this encounter
--- OUTSIDE RECORDS SUMMARY | 2025-01-05 06:32 | XMS_ITS | CONTINUITY OF CARE DOCUMENT ---
Author Name jose luis amaya Address Unknown Organization [facility] Address [address] [place] [address] [address] [place] [address] Phone [phone] Care Team Providers Care Research Rn Spec Name Role Phone Jose Perez MD Unavailable HONEY CROFT MD Unavailable HONEY CROFT MD Unavailable PROBLEMS Condition Status [...] In-person encounter Office Visit Shiv Adam MD [place] [facility] - In-person encounter Office Visit Shiv Adam MD [place] [facility] Chest pain - In-person encounter Office Visit Shiv Adam MD [place] [facility] - In-person encounter Office Visit Shiv Adam MD [place] [facility] - In-person encounter Office Visit Shiv Adam MD [place] [facility] TIA, hx of - In-person encounter Office Visit Shiv Adam MD [place] [facility] - In-person encounter Office Visit Shiv Adam MD [place] [facility] PVC'sShortness of breath - In-person encounter Office Visit Jose Perez MD [place] [facility] - In-person encounter Office Visit Jose Perez MD [place] [facility] - In-person encounter Office Visit Jose Perez MD [place] [facility] - In-person encounter Office Visit Lencho King MD [place] [facility] - In-person encounter Office Visit Jose Perez MD [place] [facility] - In-person encounter Office Visit Jose Perez MD [place] [facility] - In-person encounter Office Visit Jose Perez MD [place] [facility] Family History of Sudden Cardiac :PalpitationsCarpa [...] montelongo Milan oxygen saturation, oximetry 98 % Mora Milan respiratory rate E&M 16 /min Mora Milan pulse rate 77 /min Rudolph Milan weight E&M 158 [lb_av] Rudolph Milan height E&M 63 [in_i] Mora Milan Body Mass Index (Ratio) 28.16 kg/m2 Eloy rica Lambros blood pressure, diastolic 80 mm[Hg] Ma rsha O'Wei blood pressure, systolic 140 mm[Hg] [facility]'Wei oxygen saturation, oximetry 97 % Mis O'Wei respiratory rate E&M 16 /min Mis O'Wei pulse rate 75 /min Mis O'Wei [...] woodard height E&M 63 [in_i] Melinda [place] [facility] Body Mass Index (Ratio) 28.52 kg/m2 Seven Perez MD blood pressure, diastolic 82 mm[Hg] Godfrey chamorro [place] blood pressure, systolic 122 mm[Hg] Marco Antonio montelongo Milan oxygen saturation, oximetry 98 % [facility] E&M 16 /min [facility] pulse rate 86 /min [facility] weight E&M 161 [lb_av] Rudolph Milan height E&M 63 [in_i] Mora Milan Body Mass Index (Ratio) 28.34 kg/m2 [...] madhav height E&M 63 [in_i] Roxann Cainmaegantemochristel [facility] Body Mass Index (Ratio) 26.89 kg/m2 Seven [...] TABLET completed once daily as needed - Katerian Aguillon HYDROCODONE-ACETAMI NOPHEN 10-325 MG ORAL TABLET [...] Payer name Policy type / Coverage type [employer] party ID [facility] [id number] ADVANCE DIRECTIVES Name Date DISCUSSED - NO DECISION MADE TREATMENT PLAN Date Name Performer Cardiology: H er updated medication list for this problem includes: Bystolic 5 Mg Oral Tablet (Nebivolol hcl) ..... One tab. daily at night Aspir-low 81 Mg Oral Tablet Delayed Release (Aspirin) ..... Take 1 tab daily [facility] Cardiology: H er updated medication list for this problem includes: Bystolic 5 Mg Oral Tablet (Nebivolol hcl) ..... One tab. daily at night Aspir-low 81 Mg Oral Tablet Delayed Release (Aspirin) ..... Take 1 tab daily [facility] Cardiology: H er updated medication list for this problem includes: Bystolic 5 Mg Oral Tablet (Nebivolol hcl) ..... One tab. daily at night Aspir-low 81 Mg Oral Tablet Delayed Release (Aspirin) ..... Take 1 tab daily [facility] Cardiology:if contin ues to have palpitations, would consider ILR implant [facility] Electrophysiology follow up [facility] Electrophysiology fo llow up : H er updated medication list for this problem includes: Aspir-low 81 Mg Oral Tablet Delayed Release (Aspirin) ..... Take 1 tab daily [facility] Electrophysiology fo llow up :Holter on 10/11/2019: R hythm: Sinus Rhythm. S VE: 0.1%, 1 single SVE. V E: 1.3%, 1257 single VEs, 61 paired VEs, 9 bigeminal cycles, and 53 trigeminal cycles. Average heart rate: 80BPM M aximum heart rate: 130BPM M inimum heart rate: 63BPM [facility] Electrophysiology fo llow up :Will get stress echo i f abnormal pt will need cardiac cath by Dr. Perez [facility] Electrophysiology fo llow up : B P today: 130/80 P rior BP: 142/79 (07/16/2019) Her updated medication list for this problem includes: Aspir-low 81 Mg Oral Tablet Delayed Release (Aspirin) ..... Take 1 tab daily [facility] Electrophysiology: B P today: 142/79 P rior BP: 122/83 (06/18/2019) [facility] Electrophysiology: H er updated medication list for this problem includes: Aspir-low 81 Mg Oral Tablet Delayed Release (Aspirin) ..... Take 1 tab daily [facility] Electrophysiology:see above [facility] Electrophysiology:Wi campos evaluate holter from today T he following medications were removed from the medication list: Amiodarone Hcl 200 Mg Oral Tablet (Amiodarone hcl) ..... Take 1 tab three times a day Her updated medication list for this problem includes: Aspir-low 81 Mg Oral Tablet Delayed Release (Aspirin) ..... Take 1 tab daily [facility] Electrophysiology ho spital follow up : B P today: 131/84 P rior BP: 120/80 (04/23/2019) The following medications were removed from the medication list: Bystolic 5 Mg Oral Tablet (Nebivolol hcl) ..... One tab. daily Her updated medication list for this problem includes: Aspir-low 81 Mg Oral Tablet Delayed Release (Aspirin) ..... Take 1 tab daily [facility] Electrophysiology ho spital follow up : O rders: 9 9213 LTD. Complex (CPT-25853) H olter Monitor 24 Hr (CPT-79433) [facility] Electrophysiology ho spital follow up :schedule holter monitor O rders: E KG (CPT-46947) 9 9213 LTD. Complex (CPT-96033) H olter Monitor 24 Hr (CPT-17219) The following medications were removed from the [...] Take 1 tab three times a day [facility] Electrophysiology ho spital follow up :Pt will stop amiodarone after they finish their current script. Do not refill. O rders: F VC - 09338 (74182) F RC - 43920 (61399) D LCO - 67562 (59844) The following medications were removed from the [...] ..... One tab. daily Orders: E KG (CPT-03072) M obile Cardiac Tele (CPT-14714) T EE - GC (*) Michael Chandler [...] soon as possible. Orders: F VC - 73105 (56272) F RC - 78763 (21905) D LCO - 26415 (80209) Her updated medication list for this problem [...] possible. C heck CT cardiac (pre-ablation) at [facility]. Followup with me in 2-3 weeks. Will discuss whether the patient desires to proceed with EP ablation of PVCs at that time. Orders: E KG (CPT-01449) S tress Routine (CPT-14446) 9 9214 MOD Complex (CPT-93919) S chedule Followup (*) C T Cardiac with contrast (Pre-Ablation) (CPT-09253) Her updated medication list for this problem [...] New Patient: O rders: C omplete Echo (CPT-43400) H olter Monitor 24 Hr (CPT-71939) S TR - Routine (CPT-78086) Jose Perez MD New Patient: H er updated medication list for this problem includes: Alprazolam 0.5 Mg Tabs (Alprazolam) ..... Three times daily as needed Orders: C omplete Echo (CPT-33155) H olter Monitor 24 Hr (CPT-94037) S TR - Routine (CPT-45318) Jose Perez MD New Patient:BP 147/9 1 Jose Perez MD Date Name Mobile Cardiac Tele Stress Echo Complete Echo Stress Routine DLCO - 16114 FRC - 57184 FVC - 45228 Holter Monitor 24 Hr PROTHROMBIN TIME WIT H INR Partial Thromboplast in Time, Activated PROTHROMBIN TIME WIT H INR CBC (INCLUDES DIFF/P LT) BASIC METABOLIC PANE L W/EGFR Creatinine, Serum ABLATION w/ Anesthes ia CT Cardiac with cont rast (Pre-Ablation) DLCO - 34770 FRC - 73648 FVC - 72340 Holter Monitor 24 Hr RCIKEY - GC Mobile Cardiac Tele DLCO - 63868 FRC - 96115 FVC - 71287 CT Cardiac with cont rast (Pre-Ablation) Stress [...] EKG Lencho King MD complet ed SNOMED-CT: [id number] Current Medications Documented Lencho King MD completed SNOMED-CT: [id number] Physical Exam, Performed: Pulse Exam of Foot Jose Perez MD completed SNOMED-CT: [id number] Current Medications Documented Jose Perez MD completed PANDA Perez MD co mpleted SNOMED-CT: [id number] Physical Exam, Performed: Pulse Exam of Foot Jose Perez MD completed EKG Jose Perez MD completed SNOMED-CT: [id number] Current Medications Documented Jose Perez MD completed
--- NOTE | 2025-01-05 06:36 | ED_ITS ---
HPI - Female Genitourinary General Chief complaint: Urogenital-Female <Arnold Becerril MD - Last Filed: 01/05/25 06:56> Stated complaint: urogenital female <Arnold Becerril MD - Last Filed: 01/05/25 06:56> Time Seen by Provider: 01/05/25 06:19 <Arnold Becerril MD - Last Filed: 01/05/25 06:56> Source: patient <Arnold Becerril MD - Last Filed: 01/05/25 06:56> Mode of arrival: ambulatory <Arnold Becerril MD - Last Filed: 01/05/25 06:56> Limitations: no limitations <Arnold Becerril MD - Last Filed: 01/05/25 06:56> History of Present Illness HPI Narrative: Patient is a 59-year-old female with a significant past medical history that presents today for blood in her urine and possible kidney stone. Patient has a history of multiple kidney stones and says this feels the same as it has in the past. She has visible blood coming of the urine. She has CVA tenderness on the right side. She says the tenderness radiates down to the pelvic area on the right side. She says this all started yesterday. Has continued to get worse. It is very painful. <Arnold Becerril MD - Last Filed: 01/05/25 06:56> MD elicited complaint: dysuria, UTI , flank pain and difficulty urinating <Arnold Becerril MD - Last Filed: 01/05/25 06:56> Onset (ago): day(s) <Arnold Becerril MD - Last Filed: 01/05/25 06:56> Location of symptoms: pelvis and flank <Arnold Becerril MD - Last Filed: 01/05/25 06:56> Severity: moderate <Arnold Becerril MD - Last Filed: 01/05/25 06:56> Female Urogenital Radiation: Non-Radiating <Arnold Becerril MD - Last Filed: 01/05/25 06:56> Severity scale (1-10): 6 <Arnold Becerril MD - Last Filed: 01/05/25 06:56> Quality of pain: sharp and stabbing <Arnold Becerril MD - Last Filed: 01/05/25 06:56> Consistency: intermittent <Arnold Becerril MD - Last Filed: 01/05/25 06:56> Vaginal discharge: none <Arnold Becerril MD - Last Filed: 01/05/25 06:56> Urinary symptoms: Dysuria, Urgency, Frequency and Hematuria <Arnold Becerril MD - Last Filed: 01/05/25 06:56> Exacerbating factors: urination <Arnold Becerril MD - Last Filed: 01/05/25 06:56> Associated symptoms: denies other symptoms <Arnold Becerril MD - Last Filed: 01/05/25 06:56> Treatment prior to arrival: none <Arnold Becerril MD - Last Filed: 01/05/25 06:56> Sexual activity: No <Arnold Becerril MD - Last Filed: 01/05/25 06:56> Patient : Yes <Arnold Becerril MD - Last Filed: 01/05/25 06:56> Related Data Home medications: Home Medications ?Medication ?Instructions ?Recorded ?Confirmed ?Last Taken ?Type cyclobenzaprine 10 mg tablet 10 mg PO DAILY 05/03/22 06/22/22 Unknown History famotidine 40 mg tablet 40 mg PO DAILY 05/03/22 06/22/22 Unknown History folic acid 1 mg tablet 1 mg PO DAILY 05/03/22 06/22/22 Unknown History linaclotide 290 mcg capsule 290 mcg PO DAILY 05/03/22 06/22/22 Unknown History (Linzess) methotrexate sodium 2.5 mg tablet 2.5 mg PO DAILY 05/03/22 06/22/22 Unknown History metoprolol succinate 100 mg 100 mg PO DAILY 05/03/22 06/22/22 Unknown History tablet,extended release 24 hr pregabalin 150 mg capsule 150 mg PO DAILY 05/03/22 06/22/22 Unknown History sucralfate 1 gram tablet 1 g PO DAILY 05/03/22 06/22/22 Unknown History amitriptyline 50 mg tablet 50 mg PO DAILY 01/05/25 01/05/25 Unknown History <Arnold Becerril MD - Last Filed: 01/05/25 06:56> Allergies/Adverse reactions: Allergies Allergy/AdvReac Type Severity Reaction Status Date / Time adhesive tape Allergy Unknown rash Verified 01/05/25 06:20 <Arnold Becerril MD - Last Filed: 01/05/25 06:56> Review of Systems 2 Review of Systems: All systems reviewed & are unremarkable except as noted in HPI and below <Arnold Becerril MD - Last Filed: 01/05/25 06:56> Constitutional: Constitutional: Reports as per HPI <Arnold Becerril MD - Last Filed: 01/05/25 06:56> Eyes: Eyes: Reports no additional eye complaints <Arnold Becerril MD - Last Filed: 01/05/25 06:56> ENT: Reports system reviewed and no additional complaints, except as documented <Arnold Becerril MD - Last Filed: 01/05/25 06:56> Cardiovascular: Cardiovascular: Reports no additional cardiovascular complaints <Arnold Becerril MD - Last Filed: 01/05/25 06:56> Respiratory: Respiratory: Reports no additional respiratory complaints < Arnold Becerril MD - Last Filed: 01/05/25 06:56> Gastrointestinal: Gastrointestinal: Reports no additional gastrointestinal complaints <Arnold Becerril MD - Last Filed: 01/05/25 06:56> Genitourinary: Genitourinary: Reports as per HPI, Reports hematuria, Reports dysuria and Reports flank pain <Arnold Becerril MD - Last Filed: 01/05/25 06:56> Musculoskeletal: Musculoskeletal: Reports no additional musculoskeletal complaints <Arnold Becerril MD - Last Filed: 01/05/25 06:56> Integumentary/Breasts: Skin/Breast: Reports system reviewed and no additional complaints, except as docu <Arnold Becerril MD - Last Filed: 01/05/25 06:56> Neurologic: Reports system reviewed and no additional complaints, except as documented <Arnodl Becerril MD - Last Filed: 01/05/25 06:56> Psychiatric: Psychiatric: Reports no additional psychiatric complaints < Arnold Becerril MD - Last Filed: 01/05/25 06:56> Endocrine: Endocrine: Reports no additional endocrine complaints <Arnold Becerril MD - Last Filed: 01/05/25 06:56> Hematologic/Lymphatic: Hematologic/Lymphatic: Reports no additional hematologic/lymphatic complaints <Arnlod Becerril MD - Last Filed: 01/05/25 06:56> Allergic/Immunologic: Allergic/Immunologic: Reports no additional allergic/immunologic complaints <Arnold Becerril MD - Last Filed: 01/05/25 06:56> PMFSH Past Medical History Medical History: Medical History Hypertension GERD (gastroesophageal reflux disease) Irritable bowel syndrome Multinodular goiter Viktoria's thyroiditis <Arnold Becerril MD - Last Filed: 01/05/25 06:56> Family History Family History: Family History Other Asthma Depression Diabetes mellitus Family history of alcoholism Family history of arthritis Family history of malignant neoplasm of breast in first degree relative <Arnold Becerril MD - Last Filed: 01/05/25 06:56> Social History Social History: Social History Smoking status: Never smoker Alcohol intake: current <Arnold Becerril MD - Last Filed: 01/05/25 06:56> Exam 2 Const: General: healthy appearing <Arnold Becerril MD - Last Filed: 01/05/25 06:56> Nutritional Appearance: well nourished <Arnold Becerril MD - Last Filed: 01/05/25 06:56> Orientation/consciousness: patient oriented x3 <Arnold Becerril MD - Last Filed: 01/05/25 06:56> HENMT: Head: normal to inspection <Arnold Becerril MD - Last Filed: 01/05/25 06:56> Ears: external ears normal <Arnold Becerril MD - Last Filed: 01/05/25 06:56> Face/Nose/Sinus: Normal external nose present <Arnold Becerril MD - Last Filed: 01/05/25 06:56> Face and sinus: normal facial exam <Arnold Becerril MD - Last Filed: 01/05/25 06:56> Mouth: Yes Normal oral and palatal mucosa present <Arnold Becerril MD - Last Filed: 01/05/25 06:56> Eyes: Conjunctivae: conjunctivae normal <Arnold Becerril MD - Last Filed: 01/05/25 06:56> Pupils: Equal, round and reactive pupils present <Arnold Becerril MD - Last Filed: 01/05/25 06:56> EOM: EOMs intact bilaterally <Arnold Becerril MD - Last Filed: 01/05/25 06:56> Neck: Neck: normal visual inspection <Arnold Becerril MD - Last Filed: 01/05/25 06:56> Chest: Chest palpation & inspection: normal inspection of the chest < Arnold Becerril MD - Last Filed: 01/05/25 06:56> Resp: Effort & Inspection: normal respiratory effort <Arnold Becerril MD - Last Filed: 01/05/25 06:56> Auscultation: clear to auscultation bilaterally <Arnold Becerril MD - Last Filed: 01/05/25 06:56> Cardio: Rate: regular rate <MD Mauricio Light Last Filed: 01/05/25 06:56> Rhythm: regular rhythm <Arnold Becerril MD - Last Filed: 01/05/25 06:56> GI: GI Palp: Yes Soft to palpation <Arnold Becerril MD - Last Filed: 01/05/25 06:56> : General: Yes CVA tenderness <Arnold Becerril MD - Last Filed: 01/05/25 06:56> Back/Spine/Pelvis: Back: no CVA tenderness <Arnold Becerril MD - Last Filed: 01/05/25 06:56> Skin: General skin exam: normal color <Arnold Becerril MD - Last Filed: 01/05/25 06:56> Rashes: no rashes <Arnold Becerril MD - Last Filed: 01/05/25 06:56> Wounds: no wounds <Arnold Becerril MD - Last Filed: 01/05/25 06:56> Neuro: General: patient oriented x3 <Arnold Becerril MD - Last Filed: 01/05/25 06:56> Cranial nerves: Yes Nystagmus not present <Arnold Becerril MD - Last Filed: 01/05/25 06:56> Speech: normal speech <Arnold Becerril MD - Last Filed: 01/05/25 06:56> Gait exam (Neuro): Normal gait present <Arnold Becerril MD - Last Filed: 01/05/25 06:56> Extrem: General: normal to inspection <Arnold Becerril MD - Last Filed: 01/05/25 06:56> Psych: Appearance: grossly normal <Arnold Becerril MD - Last Filed: 01/05/25 06:56> Mental Status: mental status grossly normal <Arnold Becerril MD - Last Filed: 01/05/25 06:56> Affect: normal affect <Arnold Becerril MD - Last Filed: 01/05/25 06:56> Attitude: cooperative <Arnold Becerril MD - Last Filed: 01/05/25 06:56> Course Course Emergency Course: Right flank pain-- UA is noted to be positive for infection. CT of the abdomen and pelvis did not show any acute findings. Patient received 1 dose of 100 mg of Levaquin. <Nigel Lunsford MD - Last Filed: 01/05/25 09:07> Vital Signs Vital signs: Vital Signs Temperature 36.1 C L 01/05/25 06:16 Pulse Rate 110 H 01/05/25 06:16 Respiratory Rate 18 01/05/25 06:16 Blood Pressure 144/93 H 01/05/25 06:16 Pulse Oximetry 100 01/05/25 06:16 Oxygen Delivery Room Air 01/05/25 06:16 Temperature 36.1 C L 01/05/25 06:16 Pulse Rate 110 H 01/05/25 06:16 Respiratory Rate 18 01/05/25 06:16 Blood Pressure 144/93 H 01/05/25 06:16 Pulse Oximetry 100 01/05/25 06:16 Oxygen Delivery Room Air 01/05/25 06:16 <Arnold Becerril MD - Last Filed: 01/05/25 06:56> Vital Signs Temperature 36.1 C L 01/05/25 06:16 Pulse Rate 110 H 01/05/25 06:16 Respiratory Rate 18 01/05/25 06:16 Blood Pressure 144/93 H 01/05/25 06:16 Pulse Oximetry 100 01/05/25 06:16 Oxygen Delivery Room Air 01/05/25 06:16 Temperature 36.1 C L 01/05/25 06:16 Pulse Rate 110 H 01/05/25 06:16 Respiratory Rate 18 01/05/25 06:16 Blood Pressure 144/93 H 01/05/25 06:16 Pulse Oximetry 100 01/05/25 06:16 Oxygen Delivery Room Air 01/05/25 06:16 <Nigel Lunsford MD - Last Filed: 01/05/25 09:07> MDM - Female Genitourinary MDM Narrative Medical decision making narrative: patient definitely has blood coming out of her urine quite a bit hematuria. She most likely does have kidney stones she has pain and flank area of the right side that radiates down the pelvis and has a lot of hematuria. And she has had kidney stones in the past and thinks that this is feels just like them. Will do a CT scan of the abdomen and pelvis without contrast and check for stones. With her Toradol for pain and to with the stones and also give her Flomax. <Arnold Becerril MD - Last Filed: 01/05/25 06:56> patient definitely has blood coming out of her urine quite a bit hematuria. She most likely does have kidney stones she has pain and flank area of the right side that radiates down the pelvis and has a lot of hematuria. And she has had kidney stones in the past and thinks that this is feels just like them. Will do a CT scan of the abdomen and pelvis without contrast and check for stones. With her Toradol for pain and to with the stones and also give her Flomax. Urinary tract infection <Nigel Lunsford MD - Last Filed: 01/05/25 09:07> Differential Diagnosis Differential diagnosis: Likely urinary tract infection and other ( Kidney stones) <Arnold Becerril MD - Last Filed: 01/05/25 06:56> Likely ruptured ovarian cyst <Nigel Lunsford MD - Last Filed: 01/05/25 09:07> Medical Records Attestation: I reviewed the patient's medical records. <Arnold Becerril MD - Last Filed: 01/05/25 06:56> Lab Data Attestation: I reviewed the patient's lab results. <Arnold Becerril MD - Last Filed: 01/05/25 06:56> Result diagrams: 01/05/25 06:37 01/05/25 06:37 <Arnold Becerril MD - Last Filed: 01/05/25 06:56> Labs: Lab Results 01/05/25 01/05/25 Range/Units 06:37 06:51 WBC 8.3 (4.8-10.8) K/mm3 RBC 4.84 (4.20-5.40) M/mm3 Hgb 13.8 (12.0-15.0) g/dL Hct 43.2 (35.0-49.0) % MCV 89.3 (78.0-102.0) fL MCH 28.5 (27.0-31.0) pg MCHC 31.9 L (32-36) g/dL RDW 13.4 (11.6-14.4) % Plt Count 343 (150-420) K/mm3 MPV 8.5 L (9.2-11.8) fl Immature Gran % (Auto) 0.4 H (0.0-0.0) % Neut % (Auto) 72.7 H (50.0-70.0) % Lymph % (Auto) 21.7 (18.0-42.0) % [place] % (Auto) 4.5 (2.0-11.0) % Eos % (Auto) 0.5 L (1.0-6.0) % Baso % (Auto) 0.2 (0.0-1.0) % Lymph # (Auto) 1.80 (1.10-4.50) K/mm3 [place] # (Auto) 0.37 (0.10-0.90) K/mm3 Eos # (Auto) 0.04 (0.02-0.50) K/mm3 Baso # (Auto) 0.02 (0.00-0.10) K/mm3 Abs Immat Gran (auto) 0.03 H (0.00-0.00) K/mm3 Absolute Neuts (auto) 6.02 (1.70-7.20) K/mm3 Absolute Nucleated RBC 0.00 (0.00-0.00) K/mm3 Nucleated RBC % 0.0 (0-0.0) % Sodium 144 (136-145) mmol/L Potassium 4.1 (3.5-5.1) mmol/L Chloride 106 (98-108) mmol/L Carbon Dioxide 27 (21-32) mmol/L Anion Gap 11 (4-12) mmol/L BUN 15 (7-18) mg/dL Creatinine 0.98 (0.55-1.02) mg/dL Estim Creat Clear Calc 54 ml/min Estimated GFR 58 L (59 - ) Glucose 120 H (70-99) mg/dL Calculated Osmolality 299 H (285-295) mOsm/kg Calcium 9.0 (8.5-10.1) mg/dL Total Bilirubin 0.4 (0.00-1.00) mg/dL AST 20 (15-37) U/L ALT 33 (14-59) U/L Alkaline Phosphatase 148 H (46-116) U/L Total Protein 8.0 (6.4-8.2) g/dL Albumin 3.8 (3.4-5.0) g/dL Urine Color Brown A (Yellow) Urine Appearance Cloudy A (Clear) Urine pH 6.5 (5.0-8.0) Ur Specific [place] 1.025 H (1.010-1.020) Urine Protein 3+ H (Negative) Urine Glucose (UA) Trace H (Negative) Urine Ketones 1+ H (Negative) Ur Blood (Man) 3+ H (Negative) Urine Nitrate Positive H (Negative) Urine Bilirubin 2+ H (Negative) Urine Urobilinogen 1.0 (0.2-1.0) mg/dL Leukocyte Esterase Rfl 3+ H (Negative) SULMA/UL Urine RBC >75 H (0-2) /hpf Urine WBC 21-50 (0-3) /hpf Ur Squamous Epith Cells Few (Few) /hpf Urine Bacteria 1+ H (None) /hpf <Arnold Becerril MD - Last Filed: 01/05/25 06:56> Lab Results 01/05/25 01/05/25 Range/Units 06:37 06:51 WBC 8.3 (4.8-10.8) K/mm3 RBC 4.84 (4.20-5.40) M/mm3 Hgb 13.8 (12.0-15.0) g/dL Hct 43.2 (35.0-49.0) % MCV 89.3 (78.0-102.0) fL MCH 28.5 (27.0-31.0) pg MCHC 31.9 L (32-36) g/dL RDW 13.4 (11.6-14.4) % Plt Count 343 (150-420) K/mm3 MPV 8.5 L (9.2-11.8) fl Immature Gran % (Auto) 0.4 H (0.0-0.0) % Neut % (Auto) 72.7 H (50.0-70.0) % Lymph % (Auto) 21.7 (18.0-42.0) % [place] % (Auto) 4.5 (2.0-11.0) % Eos % (Auto) 0.5 L (1.0-6.0) % Baso % (Auto) 0.2 (0.0-1.0) % Lymph # (Auto) 1.80 (1.10-4.50) K/mm3 [place] # (Auto) 0.37 (0.10-0.90) K/mm3 Eos # (Auto) 0.04 (0.02-0.50) K/mm3 Baso # (Auto) 0.02 (0.00-0.10) K/mm3 Abs Immat Gran (auto) 0.03 H (0.00-0.00) K/mm3 Absolute Neuts (auto) 6.02 (1.70-7.20) K/mm3 Absolute Nucleated RBC 0.00 (0.00-0.00) K/mm3 Nucleated RBC % 0.0 (0-0.0) % Sodium 144 (136-145) mmol/L Potassium 4.1 (3.5-5.1) mmol/L Chloride 106 (98-108) mmol/L Carbon Dioxide 27 (21-32) mmol/L Anion Gap 11 (4-12) mmol/L BUN 15 (7-18) mg/dL Creatinine 0.98 (0.55-1.02) mg/dL Estim Creat Clear Calc 54 ml/min Estimated GFR 58 L (59 - ) Glucose 120 H (70-99) mg/dL Calculated Osmolality 299 H (285-295) mOsm/kg Calcium 9.0 (8.5-10.1) mg/dL Total Bilirubin 0.4 (0.00-1.00) mg/dL AST 20 (15-37) U/L ALT 33 (14-59) U/L Alkaline Phosphatase 148 H (46-116) U/L Total Protein 8.0 (6.4-8.2) g/dL Albumin 3.8 (3.4-5.0) g/dL Urine Color Brown A (Yellow) Urine Appearance Cloudy A (Clear) Urine pH 6.5 (5.0-8.0) Ur Specific [place] 1.025 H (1.010-1.020) Urine Protein 3+ H (Negative) Urine Glucose (UA) Trace H (Negative) Urine Ketones 1+ H (Negative) Ur Blood (Man) 3+ H (Negative) Urine Nitrate Positive H (Negative) Urine Bilirubin 2+ H (Negative) Urine Urobilinogen 1.0 (0.2-1.0) mg/dL Leukocyte Esterase Rfl 3+ H (Negative) SULMA/UL Urine RBC >75 H (0-2) /hpf Urine WBC 21-50 (0-3) /hpf Ur Squamous Epith Cells Few (Few) /hpf Urine Bacteria 1+ H (None) /hpf <Nigel Lunsford MD - Last Filed: 01/05/25 09:07> Imaging Data Attestation: I personally reviewed and interpreted this imaging study as follows: < Arnold Becerril MD - Last Filed: 01/05/25 06:56> Discharge Plan Discharge Clinical Impression: Urinary tract infection Qualifiers: Urinary tract infection type: site unspecified Hematuria presence: with hematuria Qualified Code(s): N39.0 - Urinary tract infection, site not specified Hematuria Qualifiers: Hematuria type: unspecified type Qualified Code(s): R31.9 - Hematuria, unspecified <Arnold Becerril MD - Last Filed: 01/05/25 06:56> Patient Disposition: Home <Arnold Becerril MD - Last Filed: 01/05/25 06:56> Condition: Stable <Arnold Becerril MD - Last Filed: 01/05/25 06:56> Instructions: Antibiotic Form, Urinary Tract Infection in Women (DC) <Arnold Becerril MD - Last Filed: 01/05/25 06:56> Patient Language: Faroese <Arnold Becerril MD - Last Filed: 01/05/25 06:56> Prescriptions: New levofloxacin 250 mg tablet 250 mg PO DAILY Qty: 5 0RF No Action cyclobenzaprine 10 mg tablet 10 mg PO DAILY sucralfate 1 gram tablet 1 g PO DAILY famotidine 40 mg tablet 40 mg PO DAILY metoprolol succinate 100 mg tablet extended release 24 hr 100 mg PO DAILY methotrexate sodium 2.5 mg tablet 2.5 mg PO DAILY folic acid 1 mg tablet 1 mg PO DAILY pregabalin 150 mg capsule 150 mg PO DAILY Linzess 290 mcg Capsule 290 mcg PO DAILY amitriptyline 50 mg tablet 50 mg PO DAILY <Arnold Becerril MD - Last Filed: 01/05/25 06:56> Follow-up/Referrals: Lucius Haney MD [Primary Care Provider] - <Arnold Becerril MD - Last Filed: 01/05/25 06:56> Time of Disposition: 09:05 <Arnold Becerril MD - Last Filed: 01/05/25 06:56> 09:05 <Nigel Lunsford MD - Last Filed: 01/05/25 09:07>
[2025-01-05 06:41] LABS: Basophils Absolute Auto 0.02 K/mm3 (0.00-0.10); Basophils Percent Auto 0.2 % (0.0-1.0); Eosinophils Absolute Auto 0.04 K/mm3 (0.02-0.50); Eosinophils Percent Auto 0.5 % (1.0-6.0); Hematocrit 43.2 % (35.0-49.0); Hemoglobin 13.8 g/dL (12.0-15.0); Immature Granulocyte Absolute 0.03 K/mm3 (0.00-0.00); Immature Granulocyte Percent A 0.4 % (0.0-0.0); Lymphocytes Percent Auto 21.7 % (18.0-42.0); Mean Corpuscular HGB Conc 31.9 g/dL (32-36); Mean Corpuscular Hemoglobin 28.5 pg (27.0-31.0); Mean Corpuscular Volume 89.3 fL (78.0-102.0); Mean Platelet Volume 8.5 fl (9.2-11.8); Monocytes Absolute Auto 0.37 K/mm3 (0.10-0.90); Monocytes Percent Auto 4.5 % (2.0-11.0); Neutrophils Absolute Auto 6.02 K/mm3 (1.70-7.20); Neutrophils Percent Auto 72.7 % (50.0-70.0); Platelet Count Result 343 K/mm3 (150-420); Red Blood Count 4.84 M/mm3 (4.20-5.40); Red Cell Distribution Width 13.4 % (11.6-14.4); White Blood Count 8.3 K/mm3 (4.8-10.8)
[2025-01-05] MEDS: KETOROLAC 30 MG/ML VIAL (*BKC) IV PUSH (06:41)
[2025-01-05] MEDS: SODIUM CHLORIDE 0.9% IV 1,000 ML 999 ML IV CONT (06:42)
[2025-01-05] MEDS: TAMSULOSIN HCL 0.4 MG CAPSULE PO (06:45)
[2025-01-05 06:57] LABS: Appearance Urine Cloudy (Clear); Bilirubin Urine 2+ (Negative); Blood Urine 3+ (Negative); Glucose Urine UA Trace (Negative); Ketones Urine 1+ (Negative); Leukocyte Esterase Ur 3+ LEU/UL (Negative); Nitrate Urine Positive (Negative); Protein Urine 3+ (Negative); Specific Grav Ur 1.025 (1.010-1.020); pH Urine 6.5 (5.0-8.0)
[2025-01-05 07:01] LABS: Alanine Aminotransferase 33 U/L (14-59); Albumin Level 3.8 g/dL (3.4-5.0); Alkaline Phosphatase 148 U/L (46-116); Anion Gap 11 mmol/L (4-12); Aspartate Amino Transferase 20 U/L (15-37); Bilirubin,Total 0.4 mg/dL (0.00-1.00); Blood Urea Nitrogen 15 mg/dL (7-18); Carbon Dioxide 27 mmol/L (21-32); Chloride 106 mmol/L (98-108); Estimated CRCL calculation 54 ml/min; Estimated Glomerular Filt Rate 58; Glucose 120 mg/dL (70-99); Osmolality Calculated 299 mOsm/kg (285-295); Potassium 4.1 mmol/L (3.5-5.1); Sodium 144 mmol/L (136-145)
[2025-01-05 07:03] LABS: Add Urine Microscopic? YES; Bacteria Urine 1+ /hpf; Color Urine Brown (Yellow); RBC Urine >75 /hpf (0-2); Squamous Epithelial Cell Urine Few /hpf (Few); WBC Urine 21-50 /hpf (0-3)
[2025-01-05] MEDS: levoFLOXacin 500 MG/D5W 100 ML 500 MG/100 ML BAG 100 MG IVPB (07:39)
[2025-01-05] MEDS: LACTATED RINGERS 500 ML 999 ML IV CONT (08:01)
--- NOTE | 2025-01-05 09:13 | PC.NURSE ---
On 01/05/25, the student, [renan vera ], provided care and completed [facility] documentation on this patient. I have reviewed the student's documentation and agree with the findings.
[2025-01-05 09:14] VITALS: BP 124/67; PULSE 83; RESP 18; TEMP 36.6; O2SAT 99
--- NOTE | 2025-01-07 14:25 | PC.NURSE ---
final urine culture not indicative of uti
== END 2025-01-05 09:16 | disposition home or self-care (01) ==
PROVIDERS: Family Medicine; Emergency Provider Internal Medicine Critical Care Medicine; PCP Family Medicine
DX: N39.0 Urinary tract infection, site not specified (principal); I10 Essential (primary) hypertension; Z79.899 Other long term (current) drug therapy
CPT/HCPCS: 36415; 74176; 80053; 81001; 85025; 87086; 96361; 96365; 96375; 99284; A9270; J1885; J1956; J7030; J7120